=== PATIENT | male | born 1945 | race Caucasian/White ===

== ENCOUNTER 2019-02-11 04:57 | Inpatient (IN) ==
[2019-02-11] MEDS ORDERED: NS 1,000 ML IV ONE ×4 (05:21→10:58)
--- NOTE | 2019-02-11 05:41 | PROVIDER DOCUMENTATION ---
HPI-General Adult - General Chief Complaint: Abdominal Pain Stated Complaint: LOW ABD. PAIN Time Seen by Provider: 02/11/19 05:10 Source: patient, family Allergies/Adverse Reactions: Patient Allergies Allergy/AdvReac Type Severity Reaction Status Date / Time No Known Allergies Allergy Verified 02/11/19 05:57 Home Medications: Home Medication List Medication Instructions Recorded Confirmed Last Taken Type Amiodarone HCl 0.5 tab PO DAILY 02/11/19 02/11/19 02/10/19 History Carvedilol [Coreg] 1 tab PO BID 02/11/19 02/11/19 02/10/19 History LISINOpril [Prinivil] 20 mg PO DAILY 02/11/19 02/11/19 02/10/19 History Levothyroxine [Synthroid] 12.5 mcg PO DAILY 02/11/19 02/11/19 02/10/19 History Nitroglycerin Sl [Nitroglycerin] 0.4 mg SUBLINGUAL PRN PRN MDD 0.12 02/11/19 02/11/19 02/10/19 History Rivaroxaban [Xarelto] 1 tab PO DAILY 02/11/19 02/11/19 02/10/19 History Spironolactone 0.5 tab PO DAILY 02/11/19 02/11/19 02/10/19 History - History of Present Illness -Gen Adult Nature of Presenting Problems: 73 y/o M presents to the ED complaining of LLQ pain. States he began to have LLQ pain last night and it has persisted and worsened since. No fever, no nausea or vomiting, no diarrhea and reports he feels constipated. Tried to take a mag citrate without improvement. No dysuria, or hematuria. States he began to get sweaty this AM and on arrival to the ED was diaphoretic and found to be hypotensive. No chest pain no upper respiratory symptoms. Review of Systems - Adult - REVIEW OF SYSTEMS - ADULT Constitutional: reports: no symptoms reported Eyes: reports: no symptoms reported Ears, Nose, Mouth & Throat: reports: no symptoms reported Cardiovascular: reports: no symptoms reported Respiratory: reports: no symptoms reported Gastrointestinal: reports: abdominal pain. denies: diarrhea, nausea, vomiting Genitourinary: reports: no symptoms reported Musculoskeletal: reports: no symptoms reported Integumentary: reports: no symptoms reported Neurological: reports: no symptoms reported Psychiatric: reports: no symptoms reported Endocrine: reports: no symptoms reported Hematologic/Lymphatic: reports: no symptoms reported Allergic/Immunologic: reports: no symptoms reported All Other Systems: Reviewed and Negative Past History - Adult - PAST MEDICAL HISTORY-ADULT Review of Records: reports: Old Records Reviewed, Nursing Assessment Review, Medications Reviewed, Social history reviewed & non-contributory. Major Childhood Illnesses: reports: denies history Cardiovascular: reports: denies history Respiratory: reports: denies history Gastrointestinal: reports: denies history Obstetrical/Gynecological: reports: denies history Genitourinary: reports: denies history Musculoskeletal: reports: denies history Neurological: reports: denies history Endocrine/Immune: reports: denies history Other Conditions: reports: denies history - FAMILY HISTORY Family History: reviewed, not pertinent Physical Exam-General - PHYSICAL EXAM-ADULT Initial Vital Signs Reviewed: Yes - CONSTITUTIONAL General Appearance: alert, moderate distress, other (diaphoretic) - EYES Eyes: PERRL/EOMI - HEAD, EARS, NOSE, MOUTH & THROAT HENMT: normocephalic/atraumatic, moist mucous membranes, normal ENT inspection - NECK Neck: non-tender, full range of motion, supple - RESPIRATORY Respiratory: chest non-tender, lungs clear, normal breath sounds - CARDIOVASCULAR Cardiovascular: normal peripheral pulses, regular rate, rhythm, no edema, no JVD - GASTROINTESTINAL (ABDOMEN) Abdominal Exam: soft, tenderness (moderate LLQ) - MUSCULOSKELETAL Back Exam: normal inspection, no CVA tenderness, no vertebral tenderness Extremity: normal range of motion, non-tender - SKIN Integumentary: diaphoresis, pallor - NEUROLOGIC Neurologic: grossly normal, no motor/sensory deficits - PSYCHIATRIC Psych/Mental Status: normal mood/affect, normal thought content, normal thought process, oriented x 3 Progress - PLAN OF CARE/RESULTS Progress/Plan/Lab Results: Vital Signs - 8 hr 02/11/19 05:01 02/11/19 05:21 Temperature 97.4 F L Pulse Rate 91 H Respiratory Rate 16 Blood Pressure 80/65 O2 Sat by Pulse Oximetry 100 Orders Category Date Time Status IV Insertion ORDERED Care 02/11/19 05:[address] ABD/PELVIS W/IV CONT ONLY [CT] Stat Exams 02/11/19 05:20 Ordered CBC WITH DIFF [HEME] Stat Lab 02/11/19 05:27 Ordered COMPREHENSIVE METABOLIC PANEL [CHEM] Stat Lab 02/11/19 05:27 Ordered LIPASE [CHEM] Stat Lab 02/11/19 05:27 Ordered URINALYSIS W/POSS RFLX CULT [URINALYSIS] Stat Lab 02/11/19 05:20 Uncollected 0.9% Sodium Chloride Inj [Ns] 1,000 ml Med 02/11/19 05:21 Active IV 999 mls/hr EKG [EKG] Stat Ther 02/11/19 05:13 Ordered abdominal pain with hypotension and diaphoresis. Immediately resusitated with IVF and will further evaluate for causes including but not limited to sepsis, diverticulitis, colitis, AAA, uti, pyelo, ureteral stone Result Diagrams: 02/11/19 05:22 02/11/19 07:03 - EKG 1 Time of EKG reading by physician:: 05:17 EKG Read and Signed by:: Melodie Boland EKG Interpretation (*Must complete 3 of following elements*): Abnormal (Atrial fibrillation, rate 86, no acute st changes) - CONSULTS/PCP/HOSPITALIST Notification #1 *Consult/PCP/Hospitalist*: Dr. Higginbotham (bi application developer for Dr RAUL Mckinney) Time Discussed: 10:58 Consult Disposition: Admit - CHANGE OF SHIFT REPORT (ED Provider) 1 Report Given and Care Transferred to:: Dr. Villanueva Time of Transfer: 07:00 Items Pending: Labs, CT/MRI Results 2 Report Given and Care Transferred to:: assumed care of this patient at shift change. Labs and CT pending. Time of Transfer: 07:00 Items Pending: Labs, CT/MRI Results, Physician Consult/Arrival Departure - Departure Date of Disposition Decision: 02/11/19 Time of Disposition Decision: 10:12 DIAGNOSIS: Diverticulitis Disposition: ADMITTED INPATIENT 09 Certified Medical Emergency: Emergent Condition: Stable Referrals and Follow-Ups: Isabella Mckinney MD [Primary Care Provider] - - Critical Care Note This patient required my direct & personal management of CC.: No Attestation - Physician/ JORDI Attestation Patient care was provided by Advanced Practice Provider:: No The physician spent face to face time with patient:: Yes Advanced Practice Provider documentation review:: Supervising physician onsite and consulted in the evaluation and care of this patient. The physician did have a face to face encounter with the patient.
[2019-02-11 06:05] LABS: BASO# 0.02 X1000 (0.0-0.2); BASO% 0.2 % (0.0-0.8); EOS# 0.05 X1000 (0.0-0.7); EOS% 0.4 % (0.0-10.0); HEMATOCRIT 49.3 % (42.0-52.0); HEMOGLOBIN 15.7 g/dL (14.0-18.0); IMM GRAN# 0.02 X1000 (0.0-0.04); IMM GRAN% 0.2 % (0.0-0.5); LYMPH# 2.86 X1000 (1.2-3.4); LYMPH% 24.5 % (20.5-51.1); MCH 28.4 PG (27-31); MCHC 31.8 g/dL (33-37); MCV 89.2 FL (81-99); MONO# 1.27 X1000 (0.11-0.59); MONO% 10.9 % (1.7-9.3); MPV 11.9 FL (7.4-10.4); NEUT# 7.43 X1000 (1.4-6.5); NEUT% 63.8 % (42.2-75.2); PLT 168 X1000 (130-400); RBC 5.53 XMIL (4.7-6.1); RDW 13.8 % (11.5-14.5); WBC 11.65 X1000 (4.8-10.8)
[2019-02-11 07:30] LABS: ALB/GLOB RATIO 1.3; ALBUMIN 3.4 g/dL (3.5-5.0); CALCIUM 8.2 mg/dL (8.8-10.2); CREATININE 1.5 mg/dL (0.7-1.2); POTASSIUM 4.7 mmol/L (3.5-5.1); TOTAL BILIRUBIN 0.62 mg/dL (0.20-1.00); TOTAL PROTEIN 6.1 g/dL (6.3-8.3)
--- NOTE | 2019-02-11 08:15 | Diag Imaging Result Doc PS360 ---
EXAM: CHEST-1 VIEW 02/11/2019 HISTORY: hypotension TECHNIQUE: AP upright at 0749 COMMENT: There is minimal ill-defined opacity present in the medial left lung base which was not present on 03/17/2016. The possibility of atelectasis or pneumonia cannot be entirely excluded. Otherwise the appearance the chest has not changed significantly. IMPRESSION: Questionable right lower lobe atelectasis versus pneumonia. Electronically signed by Siva Garza 02/11/2019 8:12 AM
[2019-02-11 08:19] LABS: INR 2.46; PROTIME 27.3 Seconds (11.0-16.0)
[2019-02-11 08:20] LABS: PTT 45.3 Seconds (22.3-41.8)
[2019-02-11 08:49] LABS: URINE SOURCE CLEAN CATCH
[2019-02-11 08:52] LABS: BILIRUBIN URINE NEGATIVE (NEGATIVE); BLOOD URINE NEGATIVE (NEGATIVE); COLOR YELLOW; GLUCOSE URINE NEGATIVE (NEGATIVE); KETONE URINE TRACE mg/dL (NEGATIVE); LEUKOCYTES URINE NEGATIVE (NEGATIVE); NITRITE URINE NEGATIVE (NEGATIVE); PH URINE 5.5; PROTEIN URINE TRACE mg/dL (NEGATIVE); SP GRAVITY URINE 1.019; TURBIDITY URINE CLEAR (CLEAR); UROBILINOGEN URINE NORMAL (NORMAL)
[2019-02-11 08:54] LABS: UR EPITHELIAL CELLS <10 /HPF (<10); URINE BACTERIA NEGATIVE /HPF; URINE RBC <10 /HPF (<10); URINE WBC <10 /HPF (<10)
--- NOTE | 2019-02-11 09:25 | Diag Imaging Result Doc PS360 ---
EXAM: CT ABD/PELVIS W/IV CONT ONLY 02/11/2019 HISTORY: LLQ pain TECHNIQUE: This exam was performed using automated exposure control, adjustment of mA or kV according to patient size, and/or use of iterative reconstruction technique. COMMENT: There are increased interstitial markings in the posterior lung bases which may be due in part to fibrosis. There does appear to be some traction bronchiectasis particularly in the right posterior costophrenic sulcus. The abdominal aorta is not distended and the mesenteric and renal arteries are apparently patent. The liver, spleen, and adrenal glands are within normal limits. The pancreas is unremarkable. There is some apparent cortical scarring in the posterior lower pole of the right kidney. There is no evidence of hydronephrosis or stones. There is marked cortical atrophy in the lower mid anterior left kidney. The cortical scars may be result of previous pyelonephritis. There is no evidence of significant adenopathy. The small bowel is not distended. There is fluid throughout much of the colon. There is diverticulosis in the left colon. Pelvis: There is apparent diverticulitis in the distal descending colon particularly around image 113. There is no appreciable abscess formation although there is some extra luminal gas. There is also diverticulosis in the sigmoid colon without evidence of inflammation. There is no evidence of free fluid. The urinary bladder is not distended. There are bilateral fat-containing inguinal hernias. The appendix is normal in appearance. There are spondylotic changes in the lumbar spine. There is ankylosis of the sacroiliac joints. There is a bone island in the right femur. IMPRESSION: Diverticulitis in the distal descending colon. Mild pulmonary fibrosis. Electronically signed by Siva Garza 02/11/2019 9:23 AM
[2019-02-11] MEDS ORDERED: LEVAQUIN 750 MG/D5W 750 MG/150 ML IVPB IV ONE (09:37)
[2019-02-11] MEDS ORDERED: MORPHINE IV ONE (10:12)
[2019-02-11] MEDS ORDERED: ZOFRAN IV ONE (10:12)
[2019-02-11] MEDS ORDERED: ZOFRAN IV PRN (10:58)
[2019-02-11] MEDS: FLAGYL 500 MG/NS 500 MG/100 ML IVPB IV SCH ×2 (12:04→19:53)
[2019-02-11] MEDS: MORPHINE IV PRN ×3 (12:10→19:52)
--- NOTE | 2019-02-11 14:15 | HISTORY AND PHYSICAL ---
CHIEF COMPLAINT: Abdominal pain. 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 It has gotten steadily worse. He has never had a colonoscopy. He tried taking some magnesium citrate, without improvement. He did get nauseated and diaphoretic with this, and came to the emergency room. PAST MEDICAL HISTORY: Past history includes atrial fibrillation, hypertension. He has had surgery on his left knee for a cartilage tear. He has had a right inguinal hernia done by Dr. Song here in [facility] about 2 years ago. MEDICATIONS: Please see medication list for current medications. FAMILY HISTORY: He has one son who is generally in good health. REVIEW OF SYSTEMS: Neurologic: Denies headaches, seizures, visual problems, hearing problems. Pulmonary: He has had a little shortness of breath on exertion for the last week or so. He says he is not short of breath right now. Cardiovascular: Denies chest pains or heart palpitations. Does take medication for irregular heart beat. GI: He has had left lower quadrant abdominal pain. He felt like he had been a little constipated. : No difficulty with urination. Endocrine: He does have hypothyroidism and takes Synthroid. Musculoskeletal: No acute problems. PHYSICAL EXAMINATION: VITAL SIGNS: Blood pressure was low at 80/65 initially, pulse 91, temperature 97.4 degrees Fahrenheit. HEENT: He is normocephalic. EOMs intact. PERRLA. Throat clear. LUNGS: Clear to auscultation and percussion without rhonchi, rales, or wheezes. HEART: Sounded regular but he had been told he is in atrial fibrillation. Maybe this is controlled with his medications. ABDOMEN: He is very tender in the left lower quadrant. No organomegaly noted. EXTERNAL GENITALIA AND RECTAL: Examination is deferred. NEUROLOGICAL EXAMINATION: Cranial nerves 2-12 are intact grossly. Sensory and motor intact. Reflexes 1+ all. He is oriented x3. DIAGNOSTIC DATA: CT scan of the abdomen showed diverticulitis at the distal descending colon. Has mild pulmonary fibrosis. CT scan showed interstitial markings in the posterior lung bases which may be due in part to fibrosis. Apparently, chest x-ray shows possible infiltrate versus atelectasis in the left mid lung field that was not there on previous x-ray. Whether this is part of the pulmonary fibrosis or more of an acute process is unknown but he has been short of breath for the last week or so. LABORATORY DATA: White count was 11,650, hemoglobin 15.7, hematocrit 49.3. INR was 2.46, PT 27.3, PTT 45.3. He is not on Coumadin. He is on Xarelto. Sodium is 141. Liver enzymes appear normal. Creatinine is 1.5 with a GFR of 46, BUN 26. Total protein is a little low at 6.1, total albumin a little low at 3.4. Urinalysis is normal. ASSESSMENT: 1. Diverticulitis. 2. Possible left middle lung field pneumonia. 3. Chronic atrial fibrillation. 4. Questionable coagulopathy. We will repeat INR and prothrombin time. 5. The patient also has secondary diagnoses of hypertension, chronic atrial fibrillation, and hypothyroidism. PLAN: We will treat with IV antibiotics. We will get another chest x-ray. Repeat coagulation studies. cc: Johnathon Higginbotham Jr, MD
[2019-02-11 14:20] LABS: INR 1.87; PROTIME 21.9 Seconds (11.0-16.0)
--- NOTE | 2019-02-11 14:24 | HISTORY AND PHYSICAL ---
ADDENDUM TO HISTORY AND PHYSICAL: Please add to his diagnosis hypotension. The patient did come in with low blood pressure. He has been resuscitated to a certain extent but initially was. Even is last blood pressure was only 104/63, we will hold his blood pressure medications. Because his INR and ProTime were also elevated we will repeat this to make sure it is not a lab error. cc: Johnathon Higginbotham Jr, MD
--- NOTE | 2019-02-11 17:25 | EKG Report ---
Test Performed on : 02/11/2019 05:17:24 AM Test Reason : abdominal pain dizzy Blood Pressure : / mmHG Vent. Rate : 086 BPM Atrial Rate : 300 BPM P-R Int : 000 ms QRS Dur : 144 ms QT Int : 416 ms P-R-T Axes : 000 059 030 degrees QTc Int : 497 ms Atrial fibrillation. Right bundle branch block Abnormal ECG When compared with ECG of 17-MAR-2016 18:36, Atrial fibrillation. has replaced Sinus rhythm. Vent. rate has increased BY 31 BPM Unconfirmed Result
[2019-02-11] MEDS ORDERED: NS 500 ML IV ONE (21:45)
[2019-02-11] MEDS: NS 1,000 ML IV SCH (21:57)
[2019-02-11] MEDS ORDERED: NS 1,000 ML ONE (21:58)
[2019-02-11 22:08] LABS: HEMATOCRIT 45.1 % (42.0-52.0); HEMOGLOBIN 14.4 g/dL (14.0-18.0)
[2019-02-12] MEDS: MORPHINE IV PRN ×2 (03:31→19:43)
[2019-02-12] MEDS: FLAGYL 500 MG/NS 500 MG/100 ML IVPB IV SCH ×4 (03:32→19:35)
[2019-02-12 04:19] LABS: HEMATOCRIT 43.3 % (42.0-52.0); HEMOGLOBIN 13.6 g/dL (14.0-18.0)
[2019-02-12] MEDS: NS 1,000 ML IV SCH ×3 (04:30→20:47)
[2019-02-12 08:15] LABS: BASO# 0.01 X1000 (0.0-0.2); BASO% 0.1 % (0.0-0.8); EOS# 0.01 X1000 (0.0-0.7); EOS% 0.1 % (0.0-10.0); HEMATOCRIT 42.8 % (42.0-52.0); HEMOGLOBIN 13.3 g/dL (14.0-18.0); IMM GRAN# 0.03 X1000 (0.0-0.04); IMM GRAN% 0.2 % (0.0-0.5); LYMPH# 1.81 X1000 (1.2-3.4); LYMPH% 13.8 % (20.5-51.1); MCH 28.5 PG (27-31); MCHC 31.1 g/dL (33-37); MCV 91.6 FL (81-99); MONO% 7.6 % (1.7-9.3); MPV 11.9 FL (7.4-10.4); NEUT# 10.27 X1000 (1.4-6.5); NEUT% 78.2 % (42.2-75.2); PLT 125 X1000 (130-400); RBC 4.67 XMIL (4.7-6.1); RDW 13.9 % (11.5-14.5); WBC 13.13 X1000 (4.8-10.8)
[2019-02-12 08:30] LABS: AGAP 14; BUN 19 mg/dL (8-22); CALCIUM 7.7 mg/dL (8.8-10.2); CHLORIDE 108 mmol/L (98-107); COSMO 278; ESTIMATED GFR > 60; GLUCOSE 62 mg/dL (70-104); POTASSIUM 5.4 mmol/L (3.5-5.1); SODIUM 139 mmol/L (136-145); TCO2 17 mmol/L (25-35)
[2019-02-12] MEDS: LEVAQUIN 750 MG/D5W 750 MG/150 ML IVPB IV SCH (08:48)
[2019-02-12] MEDS: CORDARONE PO SCH (11:53)
[2019-02-12 16:05] LABS: HEMATOCRIT 44.2 % (42.0-52.0); HEMOGLOBIN 14.1 g/dL (14.0-18.0)
[2019-02-12] MEDS: COREG PO SCH (20:47)
--- NOTE | 2019-02-12 22:05 | PROGRESS NOTE ---
DATE: 02/12/2019 SUBJECTIVE: A 73-year-old white gentleman admitted to the hospital with sigmoid diverticulitis with microperforation, hypotension. Complains of left lower quadrant pain. Blood pressure is stable. He is in atrial fibrillation. REVIEW OF SYSTEMS: HEENT: No headache. No vision problem. No earache. No sore throat. Cardiopulmonary: No chest pain, shortness of breath, orthopnea, PND. Gastrointestinal: Left lower quadrant pain. No passing gas. No bleeding per rectum. Musculoskeletal: No swelling of legs. PAST MEDICAL HISTORY: Reviewed. PAST SURGICAL HISTORY: Reviewed. MEDICINES: Reviewed. ALLERGIES: Not known. OBJECTIVE: Vital signs: Temperature is 97 degrees, tachycardic, irregular. Blood pressure is slightly running high. HEENT Exam: Within normal limits. Neck: Supple. Chest: Clear. Cardiovascular: Irregular heart sounds. Respiratory: Bilateral air entry. Gastrointestinal: Belly is soft. Tender in the left lower quadrant area. No guarding. No rigidity. Extremities: No peripheral edema, cyanosis. Neurologic: No obvious neurological deficits. INVESTIGATIONS: CBC: White cell count 13, hematocrit 44, platelets 135,000. Sodium 139, potassium 5.4, chloride 108, BUN 19, creatinine 1.0. Microbiology: Blood cultures are pending. I did review the CT scan of the abdomen and pelvis and diverticulitis in the distal sigmoid colon. EKG: Atrial fibrillation. Chest x-ray: Pacemaker on the left side. Right lower lobe atelectasis. ASSESSMENT: 1. Left lower quadrant pain due to sigmoid diverticulitis. 2. Chronic atrial fibrillation, status post pacemaker. 3. Hypertension. 4. Hypothyroidism. PLAN OF CARE: As follows: 1. Continue Levaquin and Flagyl. 2. Surgical consult with Dr. Dalal. 3. Azotemia is improving. Decrease IV fluids. 4. Slowly restart on Cordarone and Coreg. 5. Morphine for p.r.n. pain. 6. He was on Xarelto for the PAF, and no signs of active bleeding, and I spoke with Dr. Hendricks and repeat the labs in the morning and discussed the plan of care with family. LEVEL OF DOCUMENTATION: 35 minutes. cc: MD Johnathon Deleon Jr, MD
[2019-02-13] MEDS: FLAGYL 500 MG/NS 500 MG/100 ML IVPB IV SCH ×4 (01:02→20:02)
[2019-02-13 05:33] LABS: BASO# 0.01 X1000 (0.0-0.2); BASO% 0.1 % (0.0-0.8); EOS# 0.08 X1000 (0.0-0.7); HEMATOCRIT 44.7 % (42.0-52.0); IMM GRAN# 0.02 X1000 (0.0-0.04); IMM GRAN% 0.3 % (0.0-0.5); LYMPH# 1.16 X1000 (1.2-3.4); LYMPH% 15.2 % (20.5-51.1); MCH 28.4 PG (27-31); MCHC 31.3 g/dL (33-37); MCV 90.7 FL (81-99); MONO# 0.76 X1000 (0.11-0.59); NEUT# 5.59 X1000 (1.4-6.5); NEUT% 73.4 % (42.2-75.2); PLT 121 X1000 (130-400); RBC 4.93 XMIL (4.7-6.1); RDW 13.5 % (11.5-14.5); WBC 7.62 X1000 (4.8-10.8)
[2019-02-13 06:13] LABS: AGAP 12; BUN 17 mg/dL (8-22); CALCIUM 8.8 mg/dL (8.8-10.2); CHLORIDE 103 mmol/L (98-107); COSMO 274; CREATININE 0.8 mg/dL (0.7-1.2); ESTIMATED GFR > 60; GLUCOSE 77 mg/dL (70-104); POTASSIUM 4.2 mmol/L (3.5-5.1); SODIUM 137 mmol/L (136-145); TCO2 22 mmol/L (25-35)
[2019-02-13] MEDS: COREG PO SCH ×2 (08:30→20:02)
[2019-02-13] MEDS: CORDARONE PO SCH (08:30)
[2019-02-13] MEDS: LEVAQUIN 750 MG/D5W 750 MG/150 ML IVPB IV SCH (08:30)
[2019-02-13] MEDS: CARDIZEM 100 MG/NS 100 MG/100 ML IVPB IV SCH ×2 (08:31→16:46)
[2019-02-13] MEDS: MORPHINE IV PRN (08:34)
[2019-02-13] MEDS: NS 1,000 ML IV SCH (09:21)
--- NOTE | 2019-02-13 09:54 | GENERAL SURGERY CONSULTATION ---
DATE: 02/13/2019 REQUESTING PHYSICIAN: Dr. Mckinney. CONSULT REQUEST: Diverticulitis. HISTORY OF PRESENT ILLNESS: A 73-year-old gentleman with a past medical history of atrial fib, hypertension, initially presenting with abdominal pain. He was seen in the emergency department and was noted to have diverticulitis. There is also some concern potentially of a pneumonia. He has been admitted to the ICU secondary to his abnormal heart rhythm and relative hypotension. He seems to be doing okay at this point, feeling a little bit better, but still having pain in the left lower quadrant. He has never had this kind of pain before. He has also never had a colonoscopy. I was asked to weigh an opinion. The CT scan did show potential for microperforation. PAST MEDICAL HISTORY: Includes atrial fib, hypertension. PAST SURGICAL HISTORY: Includes inguinal hernia repair and left knee surgery. HOME MEDICATIONS: Reviewed. Of note he is on Xarelto. ALLERGIES: None. FAMILY HISTORY: Reviewed with patient but noncontributory. REVIEW OF SYSTEMS: A full 14 systems reviewed and negative except as specified in HPI. PHYSICAL EXAMINATION: Vital Signs: Patient is currently afebrile. His heart rate is in the 130s, but it is irregular consistent with atrial fibrillation. Blood pressure 111/86. General exam: No acute distress, male looks stated age. HEENT: Normocephalic, atraumatic. Pupils equal, round, react to light. Mucous membranes moist. Oropharynx benign. Neck: Supple. Trachea midline. Cardiovascular: Irregularly irregular. Lungs: Grossly clear. Abdomen: Soft. Tender to palpation suprapubic and left lower quadrant but no peritoneal signs at this time. Extremities: Moves all extremities. Neurologic: Grossly intact. Skin: No signs of jaundice. Vascular: All extremities perfused. LABORATORY: White blood cell count 7, which is down from 13, hematocrit 44, platelet count 121,000. INR when he came in was 1.87. Remainder of labs reviewed. CT scan independently reviewed and radiology report reviewed and noted above. ASSESSMENT AND PLAN: A 73-year-old with diverticulitis. 1. Diverticulitis. At this time I do not think we need emergent operation. Agree with the IV antibiotics which he is on. He is currently on Levaquin and Flagyl. I am okay with him starting a clear liquid diet, that way he can get some of his heart medicines if he needs it. We will plan on repeat CT scan in the next couple days but otherwise we will continue to monitor while in the hospital. I appreciate the consultation. The patient would likely benefit from a colonoscopy. 2. History of colonoscopy. At this time, patient has never had one so we will likely need to do one once he gets over this diverticulitis. cc: MD Johnathon Grimes Jr, MD
--- NOTE | 2019-02-13 20:50 | PROGRESS NOTE ---
DATE: 02/13/2019 SUBJECTIVE: The patient is very anxious, tachycardic, worried about the medicine. I appreciated Dr. Dalal's consult. Still has left lower quadrant pain. No bleeding and started on clear liquids. History of passing flatus. REVIEW OF SYSTEMS: Otherwise stable. PHYSICAL EXAMINATION: Temperature is 98 degrees, pulse is 79, blood pressure 120/68.HEENT Exam: Within normal limits. Neck: Supple. No lymphadenopathy. Chest: Bilateral air entry. Heart: Regular heart sounds. Abdomen: Belly is soft. Tender in the left lower quadrant. No signs of peritonitis. LABS: White cell count 7.6, hematocrit 44, platelets 121,000. Sodium 137, potassium 4.2, BUN 17, creatinine 0.8. ASSESSMENT AND PLAN: 1. Sigmoid diverticulitis, getting better on Levaquin and Flagyl. I appreciate Dr. Dalal's consult. 2. Azotemia, better. 3. Decreased IV fluids. 4. Clear liquids. 5. Atrial fibrillation, on Cordarone and Coreg. We will use the Cardizem as needed. 6. Temazepam for sleeping and slowly start his home medications. He is very about Xarelto. If he continues to improve, we will slowly transfer him out of the intensive care unit. I appreciated Dr. Dalal's consult. LEVEL OF DOCUMENTATION: 25 minutes. cc: MD Johnathon Deleon Jr, MD
[2019-02-13] MEDS: RESTORIL PO PRN (21:09)
[2019-02-14] MEDS: NS 1,000 ML IV SCH ×3 (01:35→09:22)
[2019-02-14] MEDS: FLAGYL 500 MG/NS 500 MG/100 ML IVPB IV SCH ×4 (02:17→19:45)
[2019-02-14] MEDS: CARDIZEM 100 MG/NS 100 MG/100 ML IVPB IV SCH (06:17)
[2019-02-14 06:46] LABS: EOS# 0.08 X1000 (0.0-0.7); EOS% 1.1 % (0.0-10.0); HEMOGLOBIN 14.9 g/dL (14.0-18.0); IMM GRAN# 0.02 X1000 (0.0-0.04); IMM GRAN% 0.3 % (0.0-0.5); LYMPH% 14.9 % (20.5-51.1); MCH 28.2 PG (27-31); MCHC 31.7 g/dL (33-37); MONO# 0.68 X1000 (0.11-0.59); MONO% 9.2 % (1.7-9.3); MPV 11.3 FL (7.4-10.4); NEUT# 5.52 X1000 (1.4-6.5); NEUT% 74.5 % (42.2-75.2); PLT 130 X1000 (130-400); RBC 5.28 XMIL (4.7-6.1); RDW 13.3 % (11.5-14.5)
[2019-02-14 06:47] LABS: AGAP 13; BUN 11 mg/dL (8-22); CALCIUM 8.5 mg/dL (8.8-10.2); CHLORIDE 104 mmol/L (98-107); COSMO 278; CREATININE 0.8 mg/dL (0.7-1.2); ESTIMATED GFR > 60; GLUCOSE 110 mg/dL (70-104); POTASSIUM 4.4 mmol/L (3.5-5.1); SODIUM 139 mmol/L (136-145); TCO2 22 mmol/L (25-35)
[2019-02-14] MEDS: COREG PO SCH ×2 (08:29→21:29)
[2019-02-14] MEDS: CORDARONE PO SCH (08:29)
[2019-02-14] MEDS: SYNTHROID PO SCH (08:29)
[2019-02-14] MEDS: LEVAQUIN 750 MG/D5W 750 MG/150 ML IVPB IV SCH (08:30)
[2019-02-14] MEDS: XARELTO PO SCH (17:21)
[2019-02-14] MEDS: RESTORIL PO PRN (21:28)
--- NOTE | 2019-02-14 23:46 | GENERAL SURGERY PROGRESS NOTE ---
DATE: 02/14/2019 SUBJECTIVE: The patient reports improving pain. No nausea. He has passed gas and is tolerating liquids. OBJECTIVE: Vital Signs: He is afebrile. Vital signs are stable. General: He is awake, alert and oriented x3. No acute distress. GI: Soft, nondistended, minimally tender on the left side. No rebound or guarding. LABORATORY DATA: CBC was reviewed and unremarkable. BMP also reviewed and unremarkable. ASSESSMENT AND PLAN: A 73-year-old male with contained perforation and diverticulitis. We will continue his antibiotics and advance until full liquid diet. cc: MD Johnathon Campbell Jr, MD
[2019-02-15] MEDS: NS 1,000 ML IV SCH ×2 (02:07→03:49)
[2019-02-15] MEDS: FLAGYL 500 MG/NS 500 MG/100 ML IVPB IV SCH ×4 (03:06→21:04)
[2019-02-15] MEDS: CARDIZEM 100 MG/NS 100 MG/100 ML IVPB IV SCH (06:16)
--- NOTE | 2019-02-15 06:32 | GENERAL SURGERY PROGRESS NOTE ---
DATE: 02/15/2019 SUBJECTIVE: Patient seems to be doing okay. He says his pain is considerably less. OBJECTIVE: Vital Signs: Patient is currently afebrile. He does have still somewhat of an irregular heartbeat. Blood pressure is stable. General: On exam, in no acute distress. HEENT: Normocephalic, atraumatic. Pupils equal, round, reactive to light. Mucous membranes moist. Oropharynx benign. Neck: Supple. Lungs: Grossly clear. Cardiovascular: Irregularly irregular. Abdomen: Soft. Really no tenderness at all this morning. No peritoneal signs. Extremities: Moves all extremities. Neurologic: Grossly intact. Skin: No signs of jaundice. Vascular: All extremities perfused. LABORATORY DATA: Reviewed from yesterday, his white blood cell count is normal, hematocrit normal, platelet count normal. Majority of electrolytes are normal. ASSESSMENT AND PLAN: A 73-year-old gentleman with diverticulitis. Diverticulitis: At this time, he has made clinical improvement. He essentially has no pain. I think at this point, we could probably transition him over to oral antibiotics. I have advanced him over to a gastrointestinal soft diet. Since he has made such improvement clinically and does not have a leukocytosis, I do not think at this time we need to do a repeat CT scan. Once his cardiac issues get improved, we may consider transferring him out of the intensive care unit and hopefully discharging soon. cc: MD Johnathon Grimes Jr, MD
[2019-02-15] MEDS: SYNTHROID PO SCH (08:15)
[2019-02-15] MEDS: COREG PO SCH ×2 (08:15→21:04)
[2019-02-15] MEDS: CORDARONE PO SCH (08:15)
--- NOTE | 2019-02-15 08:50 | PROGRESS NOTE ---
DATE: 02/15/2019 SUBJECTIVE: The patient is doing much better and atrial fibrillation rate is well controlled. I appreciated Dr. Dalal's consult. Abdominal pain is improving. PHYSICAL EXAMINATION: Vital signs: Temperature is 98 degrees. He is in atrial fibrillation. Hemodynamics are stable. HEENT: Within normal limits. Chest: Clear. Heart: Irregular heart sounds. Abdomen: Belly is soft. Decreased tenderness in the left lower quadrant. Neurologic: No neurological deficits. INVESTIGATIONS: None reported. ASSESSMENT AND PLAN: 1. Sigmoid diverticulitis is improving. Continue IV Levaquin and Flagyl. 2. Atrial fibrillation. We will start home medicines with amiodarone, Coreg and Xarelto. 3. Insomnia. Temazepam. 4. Reconcile home medicines, transfer to the regular floor. Advance the diet to GI soft. Please see the transfer orders. LEVEL OF DOCUMENTATION: 35 minutes. cc: MD Johnathon Deleon Jr, MD
[2019-02-15] MEDS: LEVAQUIN 750 MG/D5W 750 MG/150 ML IVPB IV SCH (10:02)
[2019-02-15] MEDS ORDERED: NITROGLYCERIN SL PRN (10:55)
[2019-02-15] MEDS ORDERED: XARELTO PO SCH (10:55)
[2019-02-15] MEDS: PRINIVIL PO SCH (11:18)
[2019-02-15] MEDS: XARELTO PO SCH (19:13)
[2019-02-16] MEDS: FLAGYL 500 MG/NS 500 MG/100 ML IVPB IV SCH ×4 (01:20→20:12)
--- NOTE | 2019-02-16 06:41 | GENERAL SURGERY PROGRESS NOTE ---
DATE: 02/16/2019 SUBJECTIVE: Patient seems to be doing okay. He was transferred out of the unit. OBJECTIVE: Vital Signs: Patient is currently afebrile. His vital signs are stable. General: No acute distress. HEENT: Normocephalic, atraumatic. Pupils equal, round and reactive to light. Mucous membranes moist. Oropharynx benign. Neck: Supple. Trachea midline. Cardiovascular: Irregular irregular. Lungs: Grossly clear. Abdomen: Soft with some minimal tenderness in the left lower quadrant. No peritoneal signs. Extremities: Moves all extremities. Neurologic: Grossly intact. Skin: No signs of jaundice. Vascular: All extremities perfused. LABORATORY: None this morning as of yet. ASSESSMENT AND PLAN: A 73-year-old gentleman with diverticulitis. 1. Diverticulitis. At this time, he seems to be making some clinical improvement, but he still significantly is deconditioned. We will continue current treatment and continue antibiotics. I think he can be transitioned over to p.o. antibiotics here soon. Hopefully, we can have him discharged here in the near future. 2. Deconditioning. At this time, would recommend continue working and mobilization with the patient. He is probably still too weak to be discharged. cc: MD Johnathon Grimes Jr, MD
[2019-02-16] MEDS: SYNTHROID PO SCH (09:35)
[2019-02-16] MEDS: PRINIVIL PO SCH (09:35)
[2019-02-16] MEDS: CORDARONE PO SCH (09:35)
[2019-02-16] MEDS: COREG PO SCH ×2 (09:35→20:12)
[2019-02-16] MEDS: LEVAQUIN 750 MG/D5W 750 MG/150 ML IVPB IV SCH (10:52)
[2019-02-16] MEDS: XARELTO PO SCH (17:09)
--- NOTE | 2019-02-16 19:11 | PROGRESS NOTE ---
DATE: 02/16/2019 SUBJECTIVE: The patient is doing better. Still with pain. No bleeding per rectum. He is still in atrial fibrillation on the monitor. He is supposed to have direct cardioversion this week in [facility]. Previously seen by Dr. Acuna. REVIEW OF SYSTEMS: None reported. PHYSICAL EXAMINATION: Temperature is 97 degrees. Pulse is 105. Vitals are stable.HEENT: Within normal limits. Neck: Supple. Irregular heartbeat. Bilateral air entry. Belly is soft, slightly tender in the left lower quadrant area. LABORATORY DATA: Labs were not done. Blood cultures were negative. ASSESSMENT AND PLAN: 1. Sigmoid diverticulitis. Under the care of Dr. Dalal. Continue on Levaquin and Flagyl. 2. Left hand localized ecthyma with redness from the intravenous site. Continue on Levaquin. 3. Persistent atrial fibrillation. On Cordarone, Coreg, Xarelto. 4. Insomnia. On Restoril. 5. Slowly advance to soft diet over the weekend. Hopefully, will discharge on Tuesday and will follow up. LEVEL OF DOCUMENTATION: 25 minutes. cc: MD Johnathon Deleon Jr, MD
[2019-02-17] MEDS: FLAGYL 500 MG/NS 500 MG/100 ML IVPB IV SCH ×4 (01:46→22:10)
[2019-02-17] MEDS: PRINIVIL PO SCH (08:45)
[2019-02-17] MEDS: SYNTHROID PO SCH (08:45)
[2019-02-17] MEDS: CORDARONE PO SCH (08:45)
[2019-02-17] MEDS: LEVAQUIN 750 MG/D5W 750 MG/150 ML IVPB IV SCH (08:45)
[2019-02-17] MEDS: COREG PO SCH ×2 (08:45→22:11)
--- NOTE | 2019-02-17 10:25 | GENERAL SURGERY PROGRESS NOTE ---
DATE: 02/17/2019 SUBJECTIVE: Patient doing well. No major issues. OBJECTIVE: Vital Signs: Patient is currently afebrile. His vital signs are stable. General: No acute distress. HEENT: Normocephalic, atraumatic. Pupils equal, round, reactive to light. Mucous membranes moist. Oropharynx benign. Neck: Supple. Trachea midline. Cardiovascular: Irregularly irregular. Lungs: Grossly clear. Abdomen: Soft. Minimal discomfort to palpation but no peritoneal signs. Extremities: Moves all extremities. Neurologic: Grossly intact. Skin: No signs of jaundice. Vascular: All extremities perfused. LABORATORY DATA: None this morning as of yet. ASSESSMENT AND PLAN: A 73-year-old gentleman with diverticulitis. Diverticulitis. At this time, he seems to be clinically improving. We will keep him on his antibiotics. I do not think we are going to need to do any surgery, but we will monitor him while he is in the hospital. cc: MD Johnathon Grimes Jr, MD
--- NOTE | 2019-02-17 12:18 | PROGRESS NOTE ---
DATE: 02/17/2019 Mr. Menezes has sigmoid diverticulitis, atrial fibrillation on Xarelto and amiodarone. So far the culture studies have been negative. OBJECTIVE: Vital Signs: His vital signs are stable. Abdomen: Is soft, nontender. He is getting IV Levaquin which we are going to continue. -8 cc: MD Johnathon Dean Jr, MD
[2019-02-17] MEDS: XARELTO PO SCH (17:57)
[2019-02-18] MEDS: FLAGYL 500 MG/NS 500 MG/100 ML IVPB IV SCH ×4 (01:10→20:07)
--- NOTE | 2019-02-18 07:29 | GENERAL SURGERY PROGRESS NOTE ---
DATE: 02/18/2019 SUBJECTIVE: The patient seems to be doing okay. OBJECTIVE: Vital Signs: The patient is currently afebrile. His vital signs are stable. General: No acute distress. HEENT: Normocephalic, atraumatic. Pupils equal, round, reactive to light. Mucous membranes moist. Oropharynx benign. Neck: Supple. Trachea midline. Cardiovascular: Regular rate and rhythm. Lungs: Grossly clear. Abdomen: Soft. Only minimal tenderness. No peritoneal signs. Extremities: Moves all extremities. Neurologic: Grossly intact. Skin: No signs of jaundice. Vascular: All extremities perfused. LABORATORY DATA: None this morning as of yet. ASSESSMENT AND PLAN: A 73-year-old gentleman with diverticulitis. Diverticulitis. At this time, the patient is improving clinically. Will keep him on his antibiotics. No need for surgery at this point. Will continue to monitor while he is in the hospital. cc: MD Johnathon Grimes Jr, MD
[2019-02-18] MEDS: PRINIVIL PO SCH (09:10)
[2019-02-18] MEDS: LEVAQUIN 750 MG/D5W 750 MG/150 ML IVPB IV SCH (09:10)
[2019-02-18] MEDS: SYNTHROID PO SCH (09:10)
[2019-02-18] MEDS: COREG PO SCH ×2 (09:10→20:07)
[2019-02-18] MEDS: CORDARONE PO SCH (09:10)
--- NOTE | 2019-02-18 11:39 | PROGRESS NOTE ---
DATE: 02/18/2019 LOCATION: Room 326A. SUBJECTIVE: Mr. Menezes is recovering from diverticulitis. He is getting IV Levaquin. He is also on Xarelto for atrial fibrillation. Abdomen is soft, somewhat tender in the left lower quadrant. He was seen by Dr. Dalal today. -9 cc: MD Johnathon Dean Jr, MD
[2019-02-18] MEDS ORDERED: TYLENOL PO PRN (13:38)
[2019-02-18] MEDS: XARELTO PO SCH (18:15)
[2019-02-19] MEDS: FLAGYL 500 MG/NS 500 MG/100 ML IVPB IV SCH ×2 (02:09→09:02)
--- NOTE | 2019-02-19 07:19 | GENERAL SURGERY PROGRESS NOTE ---
DATE: 02/19/2019 SUBJECTIVE: The patient is doing well. No major issues.Objective: Vital Signs: Patient is currently afebrile. His vital signs stable. General: On exam, no acute distress. Cardiovascular: Atrial fibrillation. HEENT and Neck: Normocephalic, atraumatic. Pupils equal, round, reactive to light. Mucous membranes moist. Oropharynx benign. Neck is supple. Trachea midline. Lungs: Grossly clear. Abdomen: Soft, nontender, nondistended. Extremities: Moves all extremities. Neurologic: Grossly intact. Skin: No signs of jaundice. Vascular: All extremities perfused. LABORATORY: None this morning as of yet. ASSESSMENT AND PLAN: A 73-year-old gentleman with diverticulitis. Diverticulitis: At this time, the patient is clinically improving. I think we can transition him over to oral antibiotics and discharge him home today if okay with his primary care physician. cc: MD Johnathon Grimes Jr, MD
[2019-02-19] MEDS: COREG PO SCH (09:02)
[2019-02-19] MEDS: PRINIVIL PO SCH (09:02)
[2019-02-19] MEDS: SYNTHROID PO SCH (09:02)
[2019-02-19] MEDS: CORDARONE PO SCH (09:02)
[2019-02-19] MEDS ORDERED: PNEUMOVAX 23 IM ONE (09:49)
[2019-02-19] MEDS: LEVAQUIN 750 MG/D5W 750 MG/150 ML IVPB IV SCH (10:19)
[2019-02-19 11:40] VITALS: BP 114/77
--- NOTE | 2019-02-19 21:53 | DISCHARGE SUMMARY ---
ADMISSION DATE: 02/11/2019 DISCHARGE DATE: 02/19/2019 DISCHARGING DIAGNOSIS: Left lower quadrant pain due to sigmoid diverticulitis. SECONDARY DIAGNOSES: 1. Persistent atrial fibrillation. 2. Hypertension. 3. Hypothyroidism. CONSULTS: Colin Dalal MD BRIEF HISTORY: Please see the H and P that was done by Dr. Higginbotham. In brief, he is a 73-year-old white gentleman who came to the hospital with left lower quadrant pain, elevated white cell count and azotemia due to sigmoid diverticulitis. He is also rapid atrial fibrillation. HOSPITAL COURSE: 1. He was given IV fluids and subsequently renal function test came back normal. 2. Elevated white cell count due to sigmoid diverticulitis with microperforation, The patient was given Levaquin and Flagyl. Subsequently, white cell count came back normal. Surgical consult was obtained. Dr. Dalal slowly transitioning into p.o. antibiotics and outpatient colonoscopy. 3. Persistent atrial fibrillation. Needs IV Cardizem drip. Slowly transitioning to the p.o. medicine with Coreg and Xarelto. The patient is going to see Dr. Yoo in the [facility] in [place] for a direct cardioversion. He also had a pacemaker was placed and subsequently his clinical symptoms are improved. Tolerating the diet very well. Rest of the hospital course was uneventful. LABORATORY DATA FOLLOWS: CBC: White cell count 7.4, hematocrit 47, platelets 130,000. Sodium 139, potassium 4.4, chloride 104, BUN 11, creatinine 0.8, glucose 110, and calcium 8.5. Urinalysis is clear. Blood cultures were negative. DISCHARGE MEDICATIONS: At the time of discharge, the patient was given pneumococcal vaccine-23 02/19/2019. He would rather take influenza vaccine in [facility]. Amiodarone 200 daily, Coreg 25 p.o. b.i.d., Synthroid 25 mcg daily, nitroglycerin as needed, Aldactone 25 daily, tramadol 20 daily, Xarelto 20 daily, Levaquin 500 daily for 10 days. FOLLOWUP: Follow up in my office in 2 weeks. Follow up with Dr. Dalal for interval colonoscopy and further workup and follow up with Dr. Yoo in [facility] for direct cardioversion for persistent atrial fibrillation. cc: Lauro Mckinney, MD Colin Meléndez Jr, MD
== END 2019-02-19 12:39 | disposition home or self-care (01) | DRG 392 ==
LOC: ED 04:57 → ICU 12:28 → 3N 02-15 12:58
PROVIDERS: ADMIT Emergency Medicine; ATTEND Internal Medicine

== ENCOUNTER 2019-02-26 13:34 | Inpatient (IN) ==
[2019-02-26] MEDS ORDERED: ASPIRIN PO ONE (13:50)
[2019-02-26] MEDS ORDERED: NS 1,000 ML ONE (14:04)
[2019-02-26] MEDS ORDERED: CARDIZEM IV ONE ×2 (14:07→15:38)
[2019-02-26] MEDS ORDERED: NS 1,000 ML IV ONE (14:08)
--- NOTE | 2019-02-26 14:13 | PROVIDER DOCUMENTATION ---
HPI-Syncope/Dizziness - General Chief Complaint: Shortness of Breath Stated Complaint: Palpitations, sob Time Seen by Provider: 02/26/19 14:00 Source: patient, family (Spouse) Allergies/Adverse Reactions: Patient Allergies Allergy/AdvReac Type Severity Reaction Status Date / Time No Known Allergies Allergy Verified 02/26/19 14:20 Home Medications: Home Medication List Medication Instructions Recorded Confirmed Last Taken Type Amiodarone HCl 1 tab PO DAILY 02/11/19 02/26/19 02/26/19 History Carvedilol [Coreg] 2 tab PO BID 02/11/19 02/26/19 02/26/19 History LISINOpril [Prinivil] 20 mg PO DAILY 02/11/19 02/26/19 02/26/19 History Levothyroxine [Synthroid] 25 mcg PO DAILY 02/11/19 02/26/19 02/10/19 History Nitroglycerin Sl [Nitroglycerin] 0.4 mg SUBLINGUAL PRN PRN MDD 0.12 02/11/19 02/26/19 02/26/19 History Rivaroxaban [Xarelto] 1 tab PO DAILY 02/11/19 02/26/19 02/25/19 History Spironolactone 0.5 tab PO DAILY 02/11/19 02/26/19 02/25/19 History Levofloxacin [Levaquin] 500 mg PO DAILY #10 tab 02/19/19 02/26/19 02/26/19 Rx - History of Present Illness-Syncope/Dizzy Nature of Presenting Problem: Patient is a 73 yo M with PMH of paroxysmal aFib on Eliquis and Amiodarone, s/p PPM, recently hospitalized for acute diverticulitis (still on Levaquin) and SHARON, presenting with 2 days of worsening SOB and palpitations, patient's at bedside reports 2 episodes of pre-syncope yesterday- states patient became pale and diaphoretic prior to episodes, patient recalls having palpitations and feel ing lightheaded prior to reported episodes. Additionally, patient reports watery diarrhea and poor oral intake x 1 week, he denies recurrent abdominal pain, N/V. On EMS arrival, patient was found to be hypotensive, tachycardic and tachypnic, was given fluid bolus and transported to the ED. If witnessed syncope, by whom?: Loss of Consciousness: no loss of consciousness Similar symptoms previously: reports: previous diagnosis (Recent admission for acute diverticulitis and SHARON) - Dizziness Severity in ED: reports: mild Dizziness Related Current/Associated Symptoms: reports: lightheaded Any recent trauma/injury?: reports: none Review of Systems - Adult - REVIEW OF SYSTEMS - ADULT Constitutional: reports: fatique, other (Debility). denies: chills, fever Eyes: reports: no symptoms reported Ears, Nose, Mouth & Throat: reports: no symptoms reported Cardiovascular: reports: palpitations, other (Pre-syncope) Respiratory: reports: shortness of breath Gastrointestinal: reports: diarrhea, poor appetite. denies: abdominal pain, nausea, rectal bleeding, vomiting Genitourinary: reports: no symptoms reported Musculoskeletal: reports: no symptoms reported Integumentary: reports: no symptoms reported Neurological: reports: no symptoms reported Psychiatric: reports: no symptoms reported Endocrine: reports: no symptoms reported Hematologic/Lymphatic: reports: no symptoms reported Allergic/Immunologic: reports: no symptoms reported All Other Systems: Reviewed and Negative Past History - Adult - PAST MEDICAL HISTORY-ADULT Review of Records: reports: Old Records Reviewed, Nursing Assessment Review, Medications Reviewed, Social history reviewed & non-contributory. Major Childhood Illnesses: reports: denies history Cardiovascular: reports: denies history Respiratory: reports: denies history Gastrointestinal: reports: denies history Obstetrical/Gynecological: reports: denies history Genitourinary: reports: denies history Musculoskeletal: reports: denies history Neurological: reports: denies history Endocrine/Immune: reports: denies history Other Conditions: reports: denies history - FAMILY HISTORY Family History: reviewed, not pertinent Physical Exam-General - PHYSICAL EXAM-ADULT Initial Vital Signs Reviewed: Yes (VS during examination: HR 150, RR 21, BP 100/62, [id number] - CONSTITUTIONAL General Appearance: appears well, alert, no apparent distress - EYES Eyes: PERRL/EOMI, pale conjunctivae - HEAD, EARS, NOSE, MOUTH & THROAT HENMT: normocephalic/atraumatic - NECK Neck: normal inspection - RESPIRATORY Respiratory: chest non-tender, lungs clear, normal breath sounds - CARDIOVASCULAR Cardiovascular: no edema, irregularly irregular - CHEST (BREASTS) Chest/Breast: deferred - GASTROINTESTINAL (ABDOMEN) Abdominal Exam: normal bowel sounds, non tender, soft, no organomegaly - LYMPHATIC Lymphatic: no adenopathy - MUSCULOSKELETAL Back Exam: normal inspection Extremity: non-tender, normal inspection, no pedal edema, no calf tenderness - SKIN Integumentary: pallor - NEUROLOGIC Neurologic: grossly normal - PSYCHIATRIC Psych/Mental Status: normal mood/affect Progress - PLAN OF CARE/RESULTS Progress/Plan/Lab Results: Vital Signs - 8 hr 02/26/19 13:40 02/26/19 13:56 02/26/19 13:57 Temperature 97.8 F Pulse Rate 77 124 H 112 H Respiratory Rate 20 15 21 Blood Pressure 58/48 101/65 O2 Sat by Pulse Oximetry 99 02/26/19 14:00 02/26/19 14:15 02/26/19 14:18 Temperature Pulse Rate 117 H 132 H 116 H Respiratory Rate 20 23 22 Blood Pressure 97/69 O2 Sat by Pulse Oximetry 93 L 02/26/19 14:20 02/26/19 14:23 02/26/19 14:25 Temperature Pulse Rate 123 H 128 H 135 H Respiratory Rate 21 23 23 Blood Pressure 91/60 95/70 86/63 O2 Sat by Pulse Oximetry 94 L 95 96 02/26/19 14:28 02/26/19 14:29 02/26/19 14:30 Temperature Pulse Rate 128 H 137 H 120 H Respiratory Rate 21 25 H 20 Blood Pressure 89/65 78/66 93/74 O2 Sat by Pulse Oximetry 95 95 88 L 02/26/19 14:32 02/26/19 14:34 02/26/19 14:36 Temperature Pulse Rate 134 H 117 H 115 H Respiratory Rate 20 19 23 Blood Pressure 103/63 83/56 88/74 O2 Sat by Pulse Oximetry 90 L 94 L 89 L 02/26/19 14:38 02/26/19 14:40 02/26/19 14:42 Temperature Pulse Rate 115 H 132 H 121 H Respiratory Rate 25 H 22 24 Blood Pressure 92/68 89/52 93/57 O2 Sat by Pulse Oximetry 89 L 81 L 92 L 02/26/19 14:44 02/26/19 14:46 02/26/19 14:48 Temperature Pulse Rate 104 H 101 H 99 H Respiratory Rate 23 25 H 25 H Blood Pressure 94/78 80/64 93/76 O2 Sat by Pulse Oximetry 89 L 91 L 93 L 02/26/19 14:50 02/26/19 14:52 02/26/19 14:57 Temperature Pulse Rate 111 H 99 H 107 H Respiratory Rate 24 25 H 24 Blood Pressure 98/71 90/68 100/59 O2 Sat by Pulse Oximetry 95 92 L 02/26/19 15:00 02/26/19 15:02 02/26/19 15:05 Temperature Pulse Rate 109 H 103 H 108 H Respiratory Rate 21 17 18 Blood Pressure 94/69 108/62 90/68 O2 Sat by Pulse Oximetry 89 L 02/26/19 15:07 02/26/19 15:10 02/26/19 15:13 Temperature Pulse Rate 96 H 104 H 98 H Respiratory Rate 21 19 21 Blood Pressure 97/83 92/73 92/54 O2 Sat by Pulse Oximetry 02/26/19 15:15 02/26/19 15:17 02/26/19 15:20 Temperature Pulse Rate 109 H 112 H 112 H Respiratory Rate 21 20 22 Blood Pressure 106/67 101/68 109/69 O2 Sat by Pulse Oximetry 02/26/19 15:23 02/26/19 15:26 02/26/19 15:31 Temperature Pulse Rate 113 H 103 H 113 H Respiratory Rate 26 H 26 H 18 Blood Pressure 98/72 108/67 94/71 O2 Sat by Pulse Oximetry 02/26/19 15:32 02/26/19 15:35 02/26/19 15:37 Temperature Pulse Rate 146 H 104 H 115 H Respiratory Rate 18 20 20 Blood Pressure 100/71 101/74 108/77 O2 Sat by Pulse Oximetry 100 100 02/26/19 15:40 02/26/19 15:43 02/26/19 15:45 Temperature Pulse Rate 119 H 145 H 113 H Respiratory Rate 19 24 22 Blood Pressure 119/78 93/65 104/79 O2 Sat by Pulse Oximetry 93 L 95 95 02/26/19 15:47 02/26/19 15:50 02/26/19 16:10 Temperature Pulse Rate 118 H 127 H 105 H Respiratory Rate 20 20 18 Blood Pressure 92/67 107/81 102/72 O2 Sat by Pulse Oximetry 95 95 02/26/19 16:13 02/26/19 16:15 02/26/19 16:17 Temperature Pulse Rate 112 H 135 H 124 H Respiratory Rate 28 H 21 17 Blood Pressure 104/82 104/68 113/75 O2 Sat by Pulse Oximetry 02/26/19 16:21 02/26/19 16:23 02/26/19 16:25 Temperature Pulse Rate 119 H 118 H 124 H Respiratory Rate 23 20 20 Blood Pressure 108/69 111/96 91/78 O2 Sat by Pulse Oximetry 99 98 98 02/26/19 16:26 02/26/19 16:30 02/26/19 16:35 Temperature Pulse Rate 112 H 117 H 124 H Respiratory Rate 22 23 Blood Pressure 95/68 109/70 114/78 O2 Sat by Pulse Oximetry 96 94 L 95 02/26/19 16:40 02/26/19 16:45 02/26/19 16:50 Temperature Pulse Rate 107 H 115 H 112 H Respiratory Rate 18 16 25 H Blood Pressure 112/70 117/92 106/90 O2 Sat by Pulse Oximetry 02/26/19 16:55 02/26/19 17:01 02/26/19 17:02 Temperature Pulse Rate 134 H 97 H 123 H Respiratory Rate 22 21 16 Blood Pressure 106/77 88/35 113/68 O2 Sat by Pulse Oximetry 98 94 L 02/26/19 17:05 02/26/19 17:10 02/26/19 17:19 Temperature Pulse Rate 132 H 106 H 111 H Respiratory Rate 23 23 21 Blood Pressure 97/72 98/73 100/73 O2 Sat by Pulse Oximetry 95 97 02/26/19 17:20 Temperature Pulse Rate 106 H Respiratory Rate 22 Blood Pressure 104/57 O2 Sat by Pulse Oximetry 100 Laboratory Results - last 24 hr 02/26/19 02/26/19 02/26/19 13:57 13:57 13:57 WBC 11.43 H RBC 6.13 H Hgb 17.0 Hct 53.7 H MCV 87.6 MCH 27.7 MCHC 31.7 L RDW Std Deviation 13.8 Plt Count 321 MPV 11.2 H Immature Gran % (Auto) 0.5 Neut % (Auto) 58.6 Lymph % (Auto) 32.6 Gibson % (Auto) 6.9 Eos % (Auto) 1.1 Baso % (Auto) 0.3 Immature Gran # (Auto) 0.06 H Neut # (Auto) 6.68 H Lymph # (Auto) 3.73 H Gibson # (Auto) 0.79 H Eos # (Auto) 0.13 Baso # (Auto) 0.04 PT INR PTT (Actin FS) Sodium 138 Potassium 6.3 H* Chloride 101 Carbon Dioxide 25 Anion Gap 12 BUN 42 H Creatinine 2.1 H Estimated GFR/1.73 m2 31 BUN/Creatinine Ratio 20 Glucose 133 H Calculated Osmolality 288 Calcium 10.4 H Total Bilirubin 0.45 AST 20 ALT 25 Alkaline Phosphatase 83 Creatine Kinase 37 Troponin T Ult-J-Doruwzbbudc Pept 546 H Total Protein 6.6 Albumin 3.8 Globulin 2.8 Albumin/Globulin Ratio 1.4 Plasma Lactate Urine Source Urine Color Urine Turbidity Urine pH Ur Specific [place] Urine Protein Ur Glucose (Stick) Ur Ketones (Stick) Urine Blood Urine Nitrite Urine Bilirubin Urobilinogen Dipstick Urine Leukocytes Urine WBC (Auto) Urine RBC (Auto) U Epithel Cells (Auto) Urine Bacteria (Auto) Urine Crystals Small Round Cells Urine Casts Urine Yeast-like Cells 02/26/19 02/26/19 02/26/19 13:57 13:57 14:36 WBC RBC Hgb Hct MCV MCH MCHC RDW Std Deviation Plt Count MPV Immature Gran % (Auto) Neut % (Auto) Lymph % (Auto) Gibson % (Auto) Eos % (Auto) Baso % (Auto) Immature Gran # (Auto) Neut # (Auto) Lymph # (Auto) Gibson # (Auto) Eos # (Auto) Baso # (Auto) PT 26.2 H INR 2.33 PTT (Actin FS) 40.6 Sodium Potassium Chloride Carbon Dioxide Anion Gap BUN Creatinine Estimated GFR/1.73 m2 BUN/Creatinine Ratio Glucose Calculated Osmolality Calcium Total Bilirubin AST ALT Alkaline Phosphatase Creatine Kinase Troponin T 0.049 Tfd-A-Rsmyumjnmzh Pept Total Protein Albumin Globulin Albumin/Globulin Ratio Plasma Lactate 2.0 Urine Source Urine Color Urine Turbidity Urine pH Ur Specific [place] Urine Protein Ur Glucose (Stick) Ur Ketones (Stick) Urine Blood Urine Nitrite Urine Bilirubin Urobilinogen Dipstick Urine Leukocytes Urine WBC (Auto) Urine RBC (Auto) U Epithel Cells (Auto) Urine Bacteria (Auto) Urine Crystals Small Round Cells Urine Casts Urine Yeast-like Cells 02/26/19 17:17 WBC RBC Hgb Hct MCV MCH MCHC RDW Std Deviation Plt Count MPV Immature Gran % (Auto) Neut % (Auto) Lymph % (Auto) Gibson % (Auto) Eos % (Auto) Baso % (Auto) Immature Gran # (Auto) Neut # (Auto) Lymph # (Auto) Gibson # (Auto) Eos # (Auto) Baso # (Auto) PT INR PTT (Actin FS) Sodium Potassium Chloride Carbon Dioxide Anion Gap BUN Creatinine Estimated GFR/1.73 m2 BUN/Creatinine Ratio Glucose Calculated Osmolality Calcium Total Bilirubin AST ALT Alkaline Phosphatase Creatine Kinase Troponin T Eir-P-Mlbxhqihaxu Pept Total Protein Albumin Globulin Albumin/Globulin Ratio Plasma Lactate Urine Source CATH Urine Color YELLOW Urine Turbidity HAZY Urine pH 5.5 Ur Specific [place] 1.024 Urine Protein 30 A Ur Glucose (Stick) NEGATIVE Ur Ketones (Stick) NEGATIVE Urine Blood NEGATIVE Urine Nitrite NEGATIVE Urine Bilirubin NEGATIVE Urobilinogen Dipstick NORMAL Urine Leukocytes NEGATIVE Urine WBC (Auto) <10 Urine RBC (Auto) <10 U Epithel Cells (Auto) <10 Urine Bacteria (Auto) NEGATIVE Urine Crystals NONE SEEN Small Round Cells NONE SEEN Urine Casts NONE SEEN Urine Yeast-like Cells NONE SEEN Orders Category Date Time Status Admit - [facility] Routine AdmDCTranf 02/26/19 16:14 Active Activity - Bed Rest with BRP ORDERED Care 02/26/19 16:13 Active Call Admitting on Arrival AT ADMISSION Care 02/26/19 16:15 Active Cardiac Monitoring DIRECTED Care 02/26/19 13:50 Active Nursing- MD Consult Request ROUTINE Care 02/26/19 16:17 Active Oxygen Therapy- ED Nursing DIRECTED Care 02/26/19 13:50 Active Saline Loc NOW Care 02/26/19 13:50 Active Straight Catheterization ORDERED Care 02/26/19 15:33 Active Vital Signs Order ROUTINE Care 02/26/19 16:13 Completed Z-Document. for Tele Applied ORDERED Care 02/26/19 16:15 Active Physician/Provider Consults Routine Cons 02/26/19 16:16 Ordered Heart Healthy Diet Diet 02/26/19 16:16 Active NPO Except MEDICATIONS Diet 02/27/19 00:01 Active CHEST-PORTABLE [RAD] Stat Exams 02/26/19 14:[address] HEAD W/O CONTRAST [CT] Stat Exams 02/26/19 14:08 Completed BASIC METABOLIC PANEL [CHEM] Routine Lab 02/27/19 06:00 Ordered BLOOD CULTURE [BLDCUL] Stat Lab 02/26/19 14:35 Results CBC WITH ELECTRONIC DIFF [HEME] Stat Lab 02/26/19 13:57 Completed CK PROFILE [SP CHEM] Stat Lab 02/26/19 13:57 Completed COMPREHENSIVE METABOLIC PANEL [CHEM] Stat Lab 02/26/19 13:57 Completed LACTATE, PLASMA [CHEM] Stat Lab 02/26/19 14:36 Completed PRO B-NATRIURETIC PEPTIDE Stat Lab 02/26/19 13:57 Completed PROTIME WITH INR [COAG] Stat Lab 02/26/19 13:57 Completed PTT [COAG] Stat Lab 02/26/19 13:57 Completed TROPONIN T Stat Lab 02/26/19 13:57 Completed TSH Routine Lab 02/27/19 06:00 Ordered UA [URINALYSIS W/POSS RFLX CULT] [URINALYSIS] Stat Lab 02/26/19 17:17 Completed URINE MANUAL MICROSCOPIC [URINALYSIS] Stat Lab 02/26/19 17:17 Completed 0.9% Sodium Chloride Inj [Ns] 1,000 ml Med 02/26/19 14:04 Discontinued .ROUTE As directed 0.9% Sodium Chloride Inj [Ns] 1,000 ml Med 02/26/19 16:30 Discontinued IV 75 mls/hr 0.9% Sodium Chloride Inj [Ns] 1,000 ml Med 02/26/19 14:08 Discontinued IV 999 mls/hr Acetaminophen [Tylenol] Med 02/26/19 16:13 Active 650 mg PO Q6H PRN PRN Amiodarone [Cordarone] Med 02/27/19 09:00 Active 200 mg PO DAILY Aspirin Med 02/26/19 13:50 Discontinued 325 mg PO NOW ONE Diltiazem [Cardizem] Med 02/26/19 14:07 Discontinued 10 mg IV NOW ONE Diltiazem [Cardizem] Med 02/26/19 15:38 Discontinued 10 mg IV NOW ONE Enoxaparin [Lovenox] Med 02/26/19 21:00 Once 90 mg SUBQ ONCE ONE Metoprolol [Lopressor] Med 02/26/19 16:55 Active 5 mg IV Q6H PRN PRN Piperacillin/Tazobactam [Zosyn] 4.5 gm Med 02/26/19 16:37 Discontinued 0.9% Sodium Chloride Inj [Ns] 100 ml IV NOW Sodium Polystyrene [Kayexalate] Med 02/26/19 15:33 Discontinued 30 gm PO NOW ONE Vancomycin 1 gm/Ns Med 02/26/19 16:37 Discontinued 1 gm in 250 ml IV NOW Telemetry [OM.EQ] Routine Oth 02/26/19 16:13 Active EKG [EKG] Stat Ther 02/26/19 13:50 Draft Transfer/Admit Order [TRANSFER] Routine Transfer 02/26/19 16:18 Completed In the ED, patient was noted to be intermittently hypotensive with associated paroxysms of aFib w/RVR, rate was controlled with a total of 20 mg Cardizem IVP, BP improved s/p NS bolus and maintenance fluids were started, labs significant for mild leukocytosis w/left shift and lactic acid wnl, but patient meeting 2/4 SIRS criteria (tachypnea, tachycardia), at risk for early sepsis, hence broad spectrum Abx were given in the ED after blood cultures were drawn. Patient seen and evaluated by cardiology (Dr. Stringer) in the ED and patient endorsed for admission. Result Diagrams: 02/26/19 13:57 02/26/19 13:57 - EKG 1 Time of EKG reading by physician:: 15:00 EKG Read and Signed by:: Ofelia Louie EKG Interpretation (*Must complete 3 of following elements*): Abnormal Rate: 114 Rhythm: Afib QRS: RBB ST Wave: non-specific ST changes Prior EKG Comparison: unchanged from prior (02/11/2019) Comments: Prolonged QTc - XRAY 1 XRAY Study: Chest (CHEST-PORTABLE - 02/26/2019 INDICATION: SOB COMPARISON: 02/11/2019 FINDINGS: The lungs are normally expanded and clear. Heart size and mediastinal contours are normal. No pneumothorax or pleural effusion. Stable left-sided pacemaker in good position. IMPRESSION: Negative exam. Electronically signed by Tomas Brock 02/26/2019 2:19 PM) Impression: See EMR Report - CT/MRI 1 CT Study: Head Impression: See EMR Report (Signed EXAM: CT HEAD W/O CONTRAST 02/26/2019 HISTORY: Pre-syncope TECHNIQUE: This exam was performed using automated exposure control, adjustment of mA or kV according to patient size, and/or use of iterative reconstruction technique. COMMENT: There is no evidence of mass effect, bleed, or abnormal extra-axial fluid collection. The calvarium is intact. The visualized paranasal sinuses are clear. There is cortical and subcortical lucency in the right parietal convexity consistent with a previous infarct. There are calcifications in the internal carotid arteries bilaterally. IMPRESSION: Chronic ischemic changes. No evidence of acute intracranial dise ase. Electronically signed by Siva Garza 02/26/2019 4:17 PM) - CONSULTS/PCP/HOSPITALIST Notification #1 *Consult/PCP/Hospitalist*: Dr. Mckinney Time Discussed: 15:35 Reason/Comments: Inpatient admission for possible Sepsis, Dehydration, SHARON and aFib w/RVR Consult Disposition: Admit #2 Consult: Dr. Stringer Time Discussed: 16:32 Departure - Departure Date of Disposition Decision: 02/26/19 Time of Disposition Decision: 16:30 DIAGNOSIS: Hyperkalemia, SHARON (acute kidney injury), Dehydration, Atrial fibrillation with RVR, Diarrheal disease, Pre-syncope Sepsis Qualifiers: Sepsis type: sepsis due to unspecified organism Sepsis acute organ dysfunction status: without acute organ dysfunction Qualified Code(s): A41.9 - Sepsis, u nspecified organism Afib Qualifiers: Atrial fibrillation type: paroxysmal Qualified Code(s): I48.0 - Paroxysmal atrial fibrillation Disposition: ADMITTED INPATIENT 09 Certified Medical Emergency: Emergent Condition: Stable - Critical Care Note This patient required my direct & personal management of CC.: Yes Total Time (mins): 45 Critical Care Statement: This patient required my direct personal management to treat or rule out processes, the absence of which, could potentiallly result in sudden, clinically significant life or limb threatening deterioration. Attestation - Physician/ JORDI Attestation Patient care was provided by Advanced Practice Provider:: No The physician spent face to face time with patient:: Yes Advanced Practice Provider documentation review:: Supervising physician onsite and consulted in the evaluation and care of this patient. The physician did have a face to face encounter with the patient.
--- NOTE | 2019-02-26 14:22 | Diag Imaging Result Doc PS360 ---
CHEST-PORTABLE - 02/26/2019 INDICATION: SOB COMPARISON: 02/11/2019 FINDINGS: The lungs are normally expanded and clear. Heart size and mediastinal contours are normal. No pneumothorax or pleural effusion. Stable left-sided pacemaker in good position. IMPRESSION: Negative exam. Electronically signed by Tomas Brock 02/26/2019 2:19 PM
[2019-02-26 14:27] LABS: BASO# 0.04 X1000 (0.0-0.2); BASO% 0.3 % (0.0-0.8); EOS# 0.13 X1000 (0.0-0.7); EOS% 1.1 % (0.0-10.0); HEMATOCRIT 53.7 % (42.0-52.0); IMM GRAN# 0.06 X1000 (0.0-0.04); IMM GRAN% 0.5 % (0.0-0.5); LYMPH# 3.73 X1000 (1.2-3.4); LYMPH% 32.6 % (20.5-51.1); MCH 27.7 PG (27-31); MCHC 31.7 g/dL (33-37); MCV 87.6 FL (81-99); MONO# 0.79 X1000 (0.11-0.59); MONO% 6.9 % (1.7-9.3); MPV 11.2 FL (7.4-10.4); NEUT# 6.68 X1000 (1.4-6.5); NEUT% 58.6 % (42.2-75.2); PLT 321 X1000 (130-400); RBC 6.13 XMIL (4.7-6.1); RDW 13.8 % (11.5-14.5); WBC 11.43 X1000 (4.8-10.8)
[2019-02-26 14:34] LABS: INR 2.33; PROTIME 26.2 Seconds (11.0-16.0)
[2019-02-26 14:35] LABS: PTT 40.6 Seconds (22.3-41.8)
--- NOTE | 2019-02-26 14:49 | EKG Report ---
Test Performed on : 02/26/2019 2:07:53 PM Test Reason : Palpitations Blood Pressure : / mmHG Vent. Rate : 114 BPM Atrial Rate : 133 BPM P-R Int : 000 ms QRS Dur : 142 ms QT Int : 392 ms P-R-T Axes : 000 060 013 degrees QTc Int : 540 ms Atrial fibrillation. with rapid ventricular response. Right bundle branch block Abnormal ECG When compared with ECG of 11-FEB-2019 05:17, (Unconfirmed) No significant change was found Unconfirmed Result
[2019-02-26 15:20] LABS: ALB/GLOB RATIO 1.4; ALBUMIN 3.8 g/dL (3.5-5.0); CALCIUM 10.4 mg/dL (8.8-10.2); CREATININE 2.1 mg/dL (0.7-1.2); POTASSIUM 6.3 mmol/L (3.5-5.1); TOTAL BILIRUBIN 0.45 mg/dL (0.20-1.00); TOTAL PROTEIN 6.6 g/dL (6.3-8.3)
[2019-02-26] MEDS ORDERED: KAYEXALATE PO ONE (15:33)
[2019-02-26] MEDS ORDERED: TYLENOL PO PRN (16:13)
--- NOTE | 2019-02-26 16:19 | Diag Imaging Result Doc PS360 ---
EXAM: CT HEAD W/O CONTRAST 02/26/2019 HISTORY: Pre-syncope TECHNIQUE: This exam was performed using automated exposure control, adjustment of mA or kV according to patient size, and/or use of iterative reconstruction technique. COMMENT: There is no evidence of mass effect, bleed, or abnormal extra-axial fluid collection. The calvarium is intact. The visualized paranasal sinuses are clear. There is cortical and subcortical lucency in the right parietal convexity consistent with a previous infarct. There are calcifications in the internal carotid arteries bilaterally. IMPRESSION: Chronic ischemic changes. No evidence of acute intracranial disease. Electronically signed by Siva Garza 02/26/2019 4:17 PM
[2019-02-26] MEDS ORDERED: NS 1,000 ML IV SCH (16:30)
[2019-02-26] MEDS ORDERED: VANCOMYCIN 1 GM/NS 1 GM/250 ML IVPB IV ONE (16:37)
[2019-02-26] MEDS ORDERED: ZOSYN 4.5 GM in NS 100 ML IV ONE (16:37)
[2019-02-26] MEDS ORDERED: LOPRESSOR IV PRN (16:55)
[2019-02-26 17:32] LABS: URINE SOURCE CATH
[2019-02-26 17:36] LABS: BILIRUBIN URINE NEGATIVE (NEGATIVE); BLOOD URINE NEGATIVE (NEGATIVE); COLOR YELLOW; GLUCOSE URINE NEGATIVE (NEGATIVE); KETONE URINE NEGATIVE (NEGATIVE); LEUKOCYTES URINE NEGATIVE (NEGATIVE); NITRITE URINE NEGATIVE (NEGATIVE); PH URINE 5.5; PROTEIN URINE 30 mg/dL (NEGATIVE); SP GRAVITY URINE 1.024; TURBIDITY URINE HAZY (CLEAR); UROBILINOGEN URINE NORMAL (NORMAL)
[2019-02-26 17:39] LABS: UR EPITHELIAL CELLS <10 /HPF (<10); URINE BACTERIA NEGATIVE /HPF; URINE RBC <10 /HPF (<10); URINE WBC <10 /HPF (<10)
[2019-02-26 17:58] LABS: URINE CASTS NONE SEEN; URINE CRYSTALS NONE SEEN; URINE SMALL ROUND CELLS NONE SEEN; URINE YEAST NONE SEEN
--- NOTE | 2019-02-26 18:45 | CARDIOLOGY CONSULTATION ---
DATE: 02/26/2019 CHIEF COMPLAINT ON PRESENTATION: Palpitations. HISTORY OF PRESENT ILLNESS: Mr. Menezes is a 73-year-old white male with a history of atrial fib, managed by Dr. Navarro in [place]. He presented for evaluation of shortness of breath, weakness, and heart racing. The patient was found to be in atrial fibrillation. He had a recent history of diverticulitis treated with Levaquin. In addition, he has reported decreased oral intake and significant amounts of diarrhea. PAST MEDICAL HISTORY: 1. Significant for atrial fibrillation. 2. Hypertension. 3. Recent history of diverticulitis. SOCIAL HISTORY: He is . He does not smoke. FAMILY HISTORY: Significant for hypertension. REVIEW OF SYSTEMS: A 10 system review of systems is negative except for those things mentioned in HPI. PHYSICAL EXAMINATION: Vital Signs: He is afebrile. His heart rate is in the low 100s to 110. Blood pressure 109/69. General: He is in no acute distress. HEENT: Oropharynx is moist. Normal dentition. Eye examination shows pink conjunctivae, white sclerae. Neck: Shows no obvious thyromegaly or thyroid tenderness. Cardiovascular: He is in a tachycardic and irregular rhythm. He has no obvious murmurs. He has no S3. He has no lower extremity edema. Chest: Sounds clear bilaterally. He has no increased work of breathing. Abdomen: Soft, nontender, nondistended. He has no obvious organomegaly. Skin: Warm and dry throughout without any rashes. Neurological: Moving all extremities well. He has no lateralizing deficits. PERTINENT DATA: His electrocardiogram shows atrial fib, right bundle branch block, rate of 114 beats per minute. His head CT was unremarkable for any acute findings. He has chronic ischemic changes. His chest x-ray was unremarkable. His lab data shows a white count of 11.4, his hematocrit is 53, his platelet count is 321,000. His sodium is 138, potassium 6.3, BUN 42, creatinine 2.1. His last creatinine was 0.8 on the 30. His proBNP is 546. His troponin is negative. ASSESSMENT: Mr. Menezes is a 73-year-old gentleman with a history of paroxysmal atrial fibrillation. PLAN: At this point, he is in acute kidney injury, likely secondary to volume depletion secondary to decreased oral intake and diarrhea. Considering his recent use of Levaquin, I would plan on checking a C. difficile toxin. He has been resuscitated with fluids. We will re-initiate the amiodarone. I will stop the Xarelto given his renal function and give him a single dose of Lovenox tonight. We will place him n.p.o. this evening for consideration of possible transesophageal echo and cardioversion in the morning. This will be dependent on the patient's renal function. We would like to get his renal function back in order and get him a bit more hydrated prior to cardioverting him. The patient reports that he is in agreement with this plan. cc: MD Lauro Montoya MD
[2019-02-26] MEDS ORDERED: LOVENOX SUBQ ONE (21:00)
--- NOTE | 2019-02-26 21:41 | HISTORY AND PHYSICAL ---
CHIEF COMPLAINT: 1. Palpitations. 2. Shortness of breath. 3. Diarrhea. 4. Dizziness. HISTORY OF PRESENT ILLNESS: He is a 73-year-old white male with chronic atrial fibrillation on Xarelto, amiodarone, status post pacemaker with ejection fraction 40%. Recently admitted for diverticulitis and dehydration. Sent home on Levaquin. He was doing well. He had diarrhea yesterday. Started having shortness of breath, dizziness. He came to the ER today. He has an appointment to see in my office. The patient was found to have rapid atrial fibrillation, hypotension, dehydration, acute kidney injury. He was admitted at [facility]. Cardiology consult was obtained. He had appointment to see tomorrow Dr. LINDSAY in [facility] in [place]. Carlos Stringer was consulted. He is getting IV fluids and also obtained the stool cultures to rule out Clostridium difficile. As a result, readmission was warranted. PAST MEDICAL HISTORY: 1. Hypothyroidism. 2. Recent diverticulosis. 3. Chronic atrial fibrillation. 4. Hypertension. 5. Chronic systolic heart failure. 6. History of right bundle branch block. 7. Spondylosis of lumbar spine. 8. Bilateral fat containing inguinal hernias. PAST SURGICAL HISTORY: 1. Right inguinal hernia, repaired [place] [address] Rob. 2. Left knee surgery. 3. 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 ALLERGIES: Not known. 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 . Lives in [place]. He does use smokeless tobacco. No alcohol. No drug abuse. FAMILY HISTORY: Mother had Alzheimer's. Father had heart failure. MEDICATIONS: 1. Amiodarone 200 daily. 2. Coreg 25 p.o. b.i.d. 3. Synthroid 25 mcg daily. 4. Aldactone 25 half a tablet daily. 5. Lisinopril 20 daily. 6. Xarelto 20 daily. 7. Levaquin 500 daily. HEALTH MAINTENANCE: Pneumococcal vaccine 23 on 02/19/2019. REVIEW OF SYSTEMS: HEENT: No headache. No vision problem, dizzy. No earache. No sore throat. Neck: No goiter. No lymphadenopathy. No bruit. Cardiopulmonary: No chest pain, shortness of breath, palpitation, low blood pressure with dizziness. GI: Diarrhea. No abdominal pain. No swelling of legs. No joint pain. Neurologic: No focal symptoms or weakness. PHYSICAL EXAMINATION: VITAL SIGNS: Temperature is 97.8 degrees, tachycardic, blood pressure is 80/64, 95% on room air. HEENT: Atraumatic, normocephalic. Pupils equal, react to light. Slightly pale. No jaundice. NECK: Supple. No lymphadenopathy. CHEST: Bilateral air entry. HEART: Irregular heart sounds. No murmur. ABDOMEN: Belly is soft, nontender. No signs of peritonitis. EXTREMITIES: No peripheral edema or cyanosis. NEUROLOGIC: No obvious neurological deficits. INVESTIGATIONS: White cell count 11.4, hematocrit 53, platelets 321,000. PT 26, INR 2.3. Sodium 138, potassium 6.3, BUN 22, creatinine 2.1. LFTs were normal. Cardiac enzymes were normal. ProBNP was normal. TSH is pending. Urinalysis is negative. CT head: Chronic ischemic changes, nothing acute. Chest x-ray negative exam. Stable left-sided pacemaker in good position. ASSESSMENT AND PLAN: A 73-year-old white gentleman admitted to the hospital with: 1. Hypotension, due to diarrhea, in light of recently treated with antibiotics for diverticulitis. Plan is rule out Clostridium difficile. Stool for white cells, culture and sensitivity, Clostridium difficile. 2. Hypotension. Gentle hydration. 3. Azotemia, due to low blood pressure. Follow up on SMA7. 4. Atrial fibrillation, rate controlled as per Dr. Stringer. I appreciated his consult. He is on Xarelto. INR is 2.3. 5. Hypothyroidism, on Synthroid. 6. He is on Cordarone and Xarelto for atrial fibrillation and he was seen before by Dr. Russell, and also status post pacemaker. Follow up on the labs in the morning. 7. Hyperkalemia, due to combination of lisinopril, spironolactone, and plus kidney injury. Follow up on SMA7. 8. I appreciated Cardiology consult and followup. cc: MD KAVIN Deleon
[2019-02-27] MEDS ORDERED: MORPHINE IV PRN (03:30)
[2019-02-27] MEDS: NITROGLYCERIN SL PRN ×5 (03:30→17:42)
[2019-02-27] MEDS ORDERED: ASPIRIN PO ONE (03:40)
[2019-02-27 04:40] LABS: CALCIUM 9.4 mg/dL (8.8-10.2); CREATININE 1.6 mg/dL (0.7-1.2); POTASSIUM 4.5 mmol/L (3.5-5.1)
--- NOTE | 2019-02-27 04:52 | EKG Report ---
Test Performed on : 02/27/2019 03:26:19 AM Test Reason : cp Blood Pressure : / mmHG Vent. Rate : 175 BPM Atrial Rate : 122 BPM P-R Int : 000 ms QRS Dur : 126 ms QT Int : 330 ms P-R-T Axes : 000 212 035 degrees QTc Int : 563 ms Critical Test Result: High HR Undetermined rhythm Right bundle branch block Abnormal ECG When compared with ECG of 27-FEB-2019 03:24, (Unconfirmed) Current undetermined rhythm precludes rhythm comparison, needs review Questionable change in QRS axis Unconfirmed Result
--- NOTE | 2019-02-27 04:52 | EKG Report ---
Test Performed on : 02/27/2019 03:15:56 AM Test Reason : increased HR Blood Pressure : / mmHG Vent. Rate : 153 BPM Atrial Rate : 096 BPM P-R Int : 000 ms QRS Dur : 136 ms QT Int : 354 ms P-R-T Axes : 000 220 040 degrees QTc Int : 565 ms Critical Test Result: High HR Undetermined rhythm Right bundle branch block Abnormal ECG When compared with ECG of 27-FEB-2019 03:15, (Unconfirmed) Current undetermined rhythm precludes rhythm comparison, needs review Unconfirmed Result
[2019-02-27] MEDS: SYNTHROID PO SCH (06:14)
--- NOTE | 2019-02-27 07:07 | EKG Report ---
Test Performed on : 02/27/2019 06:43:35 AM Test Reason : chest pain Blood Pressure : / mmHG Vent. Rate : 140 BPM Atrial Rate : 110 BPM P-R Int : 000 ms QRS Dur : 136 ms QT Int : 394 ms P-R-T Axes : 000 093 039 degrees QTc Int : 601 ms Critical Test Result: High HR Wide QRS tachycardia. with occasional premature ventricular complexes. Right bundle branch block Possible Lateral infarct , age undetermined Abnormal ECG When compared with ECG of 27-FEB-2019 03:26, (Unconfirmed) Previous ECG has undetermined rhythm, needs review Unconfirmed Result
[2019-02-27] MEDS ORDERED: LOVENOX SUBQ ONE (07:37)
[2019-02-27] MEDS: NS 1,000 ML IV SCH ×2 (08:25→19:55)
[2019-02-27] MEDS ORDERED: CORDARONE PO SCH (09:00)
[2019-02-27] MEDS ORDERED: DIPRIVAN 1% ONE (11:07)
[2019-02-27] MEDS ORDERED: XYLOCAINE-MPF 1% 5 ML ONE (11:08)
[2019-02-27] MEDS ORDERED: XYLOCAINE 2% VISCOUS ONE (11:09)
[2019-02-27] MEDS ORDERED: SODIUM CHLORIDE 0.9% 10 ML ONE (11:09)
[2019-02-27] MEDS ORDERED: CLAVE TWINSITE 32 IN 11959 ONE (11:12)
[2019-02-27 11:27] LABS: HEMATOCRIT 48.3 % (42.0-52.0); HEMOGLOBIN 15.4 g/dL (14.0-18.0); MCH 27.9 PG (27-31); MCHC 31.9 g/dL (33-37); MCV 87.7 FL (81-99); MPV 11.4 FL (7.4-10.4); RBC 5.51 XMIL (4.7-6.1); RDW 13.7 % (11.5-14.5); WBC 10.97 X1000 (4.8-10.8)
--- NOTE | 2019-02-27 13:02 | EKG Report ---
Test Performed on : 02/27/2019 12:24:06 PM Test Reason : post cardioversion Blood Pressure : / mmHG Vent. Rate : 086 BPM Atrial Rate : 086 BPM P-R Int : 208 ms QRS Dur : 150 ms QT Int : 422 ms P-R-T Axes : 065 088 046 degrees QTc Int : 504 ms Normal sinus rhythm. Right bundle branch block Abnormal ECG When compared with ECG of 27-FEB-2019 06:43, (Unconfirmed) Sinus rhythm. has replaced Wide QRS tachycardia. Vent. rate has decreased BY 54 BPM Unconfirmed Result
--- NOTE | 2019-02-27 13:38 | EKG Report ---
Test Performed on : 02/27/2019 1:28:22 PM Test Reason : CHEST PAIN Blood Pressure : / mmHG Vent. Rate : 096 BPM Atrial Rate : 096 BPM P-R Int : 208 ms QRS Dur : 146 ms QT Int : 420 ms P-R-T Axes : 059 106 033 degrees QTc Int : 530 ms Normal sinus rhythm. Right bundle branch block Possible Lateral infarct , age undetermined Cannot rule out Inferior infarct , age undetermined Abnormal ECG When compared with ECG of 27-FEB-2019 12:24, (Unconfirmed) No significant change was found Unconfirmed Result
[2019-02-27] MEDS ORDERED: CORDARONE 150 MG/D5W 150 MG/100 ML IV.SOLN IV ONE (18:02)
[2019-02-27] MEDS ORDERED: CORDARONE 360 MG/D5W 360 MG/200 ML IV.SOLN IV ONE (18:02)
--- NOTE | 2019-02-27 18:13 | EKG Report ---
Test Performed on : 02/27/2019 5:51:45 PM Test Reason : rhythm change Blood Pressure : / mmHG Vent. Rate : 136 BPM Atrial Rate : 125 BPM P-R Int : 000 ms QRS Dur : 138 ms QT Int : 360 ms P-R-T Axes : 000 112 036 degrees QTc Int : 541 ms Undetermined rhythm Right bundle branch block Possible Lateral infarct (cited on or before 27-FEB-2019) Cannot rule out Inferior infarct (cited on or before 27-FEB-2019) Abnormal ECG When compared with ECG of 27-FEB-2019 13:28, (Unconfirmed) Current undetermined rhythm precludes rhythm comparison, needs review Unconfirmed Result
[2019-02-27] MEDS: LOVENOX SUBQ SCH (21:10)
--- NOTE | 2019-02-27 21:47 | PROGRESS NOTE ---
DATE: 02/27/2019 SUBJECTIVE: The patient had a rough night, and heart rate is going erratic. No chest pain. No diarrhea. OBJECTIVE: He was tachycardic. Blood pressure is slowly coming up. Chest is clear. Irregular heart sounds. Belly is soft, nontender. No obvious deficits. LABORATORY DATA: CBC: White cell count 10, hematocrit 48, platelets 224,000. Sodium 139, potassium 4.5, BUN 39, creatinine 1.6. Cardiac enzymes slightly positive. ASSESSMENT AND PLAN: 1. Rapid atrial fibrillation, symptomatic, not able to control with amiodarone and the patient is going for TATI for cardioversion. 2. Azotemia, improving. Continue IV fluids. 3. Hyperkalemia, better. 4. Hypotension. Gentle hydration and repeat the labs in the morning. CBC, BMP, magnesium, PT/INR, and diarrhea. Stool for Clostridium difficile toxin assay was negative. Positive troponin. Discussed with exec. creative director for possible stress test and will follow up. LEVEL OF DOCUMENTATION: 35 minutes. cc: Lauro Mckinney MD
[2019-02-28] MEDS ORDERED: CORDARONE 540 MG in D5W 289.2 ML IV ONE (00:02)
[2019-02-28 05:55] LABS: BASO# 0.02 X1000 (0.0-0.2); BASO% 0.3 % (0.0-0.8); EOS% 1.4 % (0.0-10.0); HEMOGLOBIN 14.7 g/dL (14.0-18.0); IMM GRAN# 0.02 X1000 (0.0-0.04); IMM GRAN% 0.3 % (0.0-0.5); LYMPH# 2.33 X1000 (1.2-3.4); LYMPH% 32.5 % (20.5-51.1); MCH 28.1 PG (27-31); MCV 87.8 FL (81-99); MONO# 0.65 X1000 (0.11-0.59); MONO% 9.1 % (1.7-9.3); MPV 11.1 FL (7.4-10.4); NEUT# 4.04 X1000 (1.4-6.5); NEUT% 56.4 % (42.2-75.2); PLT 200 X1000 (130-400); RBC 5.24 XMIL (4.7-6.1); RDW 13.5 % (11.5-14.5); WBC 7.16 X1000 (4.8-10.8)
[2019-02-28] MEDS: SYNTHROID PO SCH (06:08)
[2019-02-28 06:33] LABS: AGAP 13; BUN 21 mg/dL (8-22); CALCIUM 8.8 mg/dL (8.8-10.2); CHLORIDE 106 mmol/L (98-107); COSMO 286; ESTIMATED GFR > 60; GLUCOSE 98 mg/dL (70-104); MAGNESIUM 1.6 mg/dL (1.5-2.7); POTASSIUM 4.2 mmol/L (3.5-5.1); SODIUM 142 mmol/L (136-145); TCO2 23 mmol/L (25-35)
--- NOTE | 2019-02-28 09:17 | Transesophageal Echocardiogram ---
ORDER DATE: 02/27/2019 PROCEDURE: Transesophageal Echocardiogram. DESCRIPTION OF PROCEDURE: The patient was brought to the cardiac catheterization laboratory for atrial fibrillation. Transesophageal echocardiogram was done prior to cardioversion. The patient's oropharynx was anesthetized using Cetacaine spray. Propofol was given to anesthetize the patient. Please see detailed anesthesia records. Transesophageal probe was easily passed through the esophagus, and ultrasound pictures were obtained. FINDINGS: 1. Normal left ventricular cavity size. Estimated ejection fraction 50% to 55%. However, the patient was in tachycardia. Could not assess left ventricular systolic function accurately. 2. Aortic valve leaflets were trileaflet, mildly sclerosed. 3. Mitral valve was normal. 4. Tricuspid valve was normal. 5. Pulmonic valve was normal. 6. Left atrium was mildly enlarged. 7. Left atrial appendage was normal. 8. Right atrium was normal. 9. Pacing leads are noted in the right chamber. 10. Doppler studies revealed no aortic stenosis or regurgitation. There is mild mitral regurgitation. There is mild tricuspid regurgitation. 11. Ascending aorta was normal. Descending aorta had layered plaque. CONCLUSIONS: 1. No obvious intracardiac mass or thrombus seen. Will proceed with cardioversion. 2. There is no pericardial effusion. 3. Aortic valve leaflets are trileaflet. There is no aortic stenosis or regurgitation. cc: MD Carlos Cyr MD Jagan Reddy, MD
--- NOTE | 2019-02-28 09:18 | OPERATIVE NOTE ---
DATE OF PROCEDURE: 02/27/2019 PROCEDURE: Cardioversion. Patient underwent transesophageal echocardiogram. There was no obvious intracardiac mass or thrombus seen. The patient was anesthetized. Informed consent was obtained prior to the transesophageal echocardiogram. Please see detailed anesthesia records. The patient was cardioverted to sinus rhythm with a single shock of 120 joules. There were no complications. cc: MD Lauro Cyr MD
[2019-02-28] MEDS: NS 1,000 ML IV SCH ×2 (09:34→21:55)
[2019-02-28] MEDS: LOVENOX SUBQ SCH ×2 (09:35→20:30)
[2019-02-28 09:57] LABS: INR 1.14; PROTIME 14.8 Seconds (11.0-16.0)
[2019-02-28] MEDS ORDERED: TOPROL XL PO ONE (11:51)
[2019-02-28] MEDS ORDERED: TAPAZOLE PO ONE (11:52)
--- NOTE | 2019-02-28 14:20 | EKG Report ---
Test Performed on : 02/28/2019 2:16:59 PM Test Reason : Check Rhythm Blood Pressure : / mmHG Vent. Rate : 120 BPM Atrial Rate : 129 BPM P-R Int : 000 ms QRS Dur : 146 ms QT Int : 298 ms P-R-T Axes : 000 125 029 degrees QTc Int : 421 ms Atrial fibrillation. with rapid ventricular response. Right bundle branch block Left posterior fascicular block Bifascicular block Possible Inferior infarct (cited on or before 27-FEB-2019) Abnormal ECG When compared with ECG of 27-FEB-2019 17:51, (Unconfirmed) Previous ECG has undetermined rhythm, needs review Unconfirmed Result
[2019-02-28] MEDS ORDERED: MAGNESIUM SULFATE 2 GM/S.W.I. 2 GM/50 ML IVPB IV ONE (16:34)
[2019-02-28] MEDS: TAPAZOLE PO SCH (20:30)
[2019-02-28] MEDS: TOPROL XL PO SCH (20:30)
--- NOTE | 2019-02-28 21:49 | PROGRESS NOTE ---
DATE: 02/28/2019 SUBJECTIVE: The patient had a cardioversion with 200 joules yesterday. Recurred atrial fibrillation last night. The patient's family is worried about his atrial fibrillation. Blood pressure is running on the low side. The patient has been on amiodarone drip. TSH is low, free T4 is very high. I spoke to Dr. Stringer. We are also waiting for results from [facility]. He had a CT with contrast less than 4 weeks ago. At this time, his recurrent atrial fibrillation is due to hyperthyroidism, that might be causing the diarrhea, and this could be from amiodarone. PHYSICAL EXAMINATION: vital signs: Temperature is 98, pulse 87, blood pressure is 101/71. HEENT: Within normal limits. Neck: Supple. No lymphadenopathy. Chest: Bilateral air entry. Irregular heart sounds. Belly is soft, nontender. No obvious deficits. INVESTIGATIONS: CBC: White cell count 7.1, hematocrit 46, platelets 200,000. PT 14, INR 1.1. Sodium 142, potassium 4.2, BUN 21, creatinine 1.0. Magnesium is normal. Free T4 is very high. ASSESSMENT AND PLAN: 1. 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 He did not have classical Graves disease. I will check the thyroid stimulating immunoglobulin. He is not a candidate for having a 24- hour urine, I-123 uptake. I spoke to Dr. Carlos Stringer. We will follow up on free T3 levels and discontinue the amiodarone. We will start on methimazole 5 mg b.i.d., Toprol 25 p.o. b.i.d., and Lovenox 90 mg subcu q.12. He was on Xarelto. He had a positive troponin, and whether he needs left heart catheterization or stress test up to deputy sheriff k9 handler. I am going to request the reports from [facility] 2. Diarrhea is better. Dehydration is better. 3. Hyperkalemia is improving. We will follow up. LEVEL OF DOCUMENTATION: 25 minutes. cc: Lauro Mckinney MD MTDD
--- NOTE | 2019-02-28 22:04 | CARDIOLOGY PROGRESS NOTE ---
DATE: 02/28/2019 SUBJECTIVE: Mr. Menezes has no complaints today. He went back into atrial fibrillation yesterday evening. OBJECTIVE: Vital signs: He is afebrile, heart rate 87. His blood pressure is 101/71. General: He is in no acute distress. Cardiovascular: He sounds to be in an irregularly irregular rhythm. He is slightly tachycardic during my evaluation with rates ranging anywhere from the 80s up to the low 100s. He has no lower extremity edema. Chest: Exam is clear bilaterally. He has no increased work of breathing. Abdomen: Soft, nontender. PERTINENT DATA: His sodium is 142, potassium 4.2, BUN 21, creatinine is 1. Mag level is 1.6. His hematocrit is 46. ASSESSMENT: Mr. Menezes is a 74-year-old gentleman who presented with atrial fibrillation. Since that time, he has been found to be hyperthyroid with a TSH of 0.01 and a free T4 greater than 7.7. PLAN: Patient has been initiated on methimazole. His metoprolol was titrated up to 25 b.i.d. We stopped the amiodarone. I will replete his magnesium. We will try to obtain better control of his thyroid and hopefully that will allow better control of his atrial fibrillation. cc: MD Lauro Montoya MD
[2019-03-01 06:11] LABS: BASO# 0.02 X1000 (0.0-0.2); BASO% 0.3 % (0.0-0.8); EOS# 0.17 X1000 (0.0-0.7); EOS% 2.4 % (0.0-10.0); HEMATOCRIT 44.2 % (42.0-52.0); IMM GRAN# 0.02 X1000 (0.0-0.04); IMM GRAN% 0.3 % (0.0-0.5); LYMPH# 1.96 X1000 (1.2-3.4); LYMPH% 27.3 % (20.5-51.1); MCH 27.9 PG (27-31); MCHC 31.7 g/dL (33-37); MCV 88.2 FL (81-99); MONO# 0.71 X1000 (0.11-0.59); MONO% 9.9 % (1.7-9.3); MPV 11.3 FL (7.4-10.4); NEUT# 4.31 X1000 (1.4-6.5); NEUT% 59.8 % (42.2-75.2); PLT 185 X1000 (130-400); RBC 5.01 XMIL (4.7-6.1); RDW 13.5 % (11.5-14.5); WBC 7.19 X1000 (4.8-10.8)
[2019-03-01 06:44] LABS: AGAP 13; BUN 18 mg/dL (8-22); CALCIUM 8.9 mg/dL (8.8-10.2); CHLORIDE 107 mmol/L (98-107); COSMO 282; CREATININE 0.9 mg/dL (0.7-1.2); ESTIMATED GFR > 60; GLUCOSE 85 mg/dL (70-104); MAGNESIUM 1.8 mg/dL (1.5-2.7); POTASSIUM 4.6 mmol/L (3.5-5.1); SODIUM 141 mmol/L (136-145); TCO2 21 mmol/L (25-35)
[2019-03-01] MEDS: TOPROL XL PO SCH ×2 (08:11→20:59)
[2019-03-01] MEDS: LOVENOX SUBQ SCH ×2 (08:12→20:59)
[2019-03-01] MEDS: TAPAZOLE PO SCH ×2 (08:12→20:59)
[2019-03-01] MEDS ORDERED: MAGNESIUM SULFATE 2 GM/S.W.I. 2 GM/50 ML IVPB IV ONE (09:18)
[2019-03-01] MEDS: NS 1,000 ML IV SCH (10:11)
--- NOTE | 2019-03-01 19:18 | CARDIOLOGY PROGRESS NOTE ---
DATE: 03/01/2019 SUBJECTIVE: Mr. Menezes reports he is doing well. He has no pain complaints. PHYSICAL EXAMINATION: He is afebrile. His heart rate currently is 106. His trend since 3:00 yesterday, appears improved, being in the 80s to low 100s. Blood pressure 101/83. General: He is in no acute distress. Cardiovascular: He is in an irregularly irregular rhythm consistent with his atrial fibrillation. He has no lower extremity edema. Chest: Clear bilaterally. He has no increased work of breathing. Abdomen: Soft, nontender. PERTINENT DATA: His white count is 7.2, hematocrit is 44, platelet count is 185,000. Sodium 141, potassium 4.6, BUN 18, creatinine 0.9. Magnesium level is 1.8. ASSESSMENT: Mr. Menezes is a 74-year-old gentleman who came in with rapid atrial fibrillation, was found to be significantly hyperthyroid. PLAN: At this point, acute treatment of his atrial fibrillation from the standpoint of rhythm control is on hold until his hyperthyroidism is treated. He is on Lovenox presently. Methimazole was started yesterday. He has p.r.n. Lopressor and oral metoprolol ordered. We discontinued his amiodarone. I have repleted his magnesium. I will stop his IV fluids as his renal dysfunction has been relatively well treated since admission. His free T4 yesterday was greater than 7.7, with 0.01 TSH. His free T3 was 10.3, with upper limit of normal at 4.4. We will likely discuss with Electrophysiology Service today regarding chronic therapy of his atrial fibrillation. Likely would await treatment of his hyperthyroidism and see if we can achieve reasonable rate control. He has a pacemaker in place. so consideration for AV node ablation could be done in the future. cc: MD Lauro Montoya MD
--- NOTE | 2019-03-01 22:33 | PROGRESS NOTE ---
DATE: 03/01/2019 SUBJECTIVE: A 74-year-old white male. Interval history was reviewed. The patient has amiodarone toxicity, hyperthyroid, atrial fibrillation. Findings are discussed. 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 I spoke to the family at bedside. He is rate controlled. Diarrhea has improved. PHYSICAL EXAM: Vital signs: Temperature is 98 degrees, pulse is 99, blood pressure is stable, 2 L nasal cannula. HEENT: Within normal limits. Neck: Supple. No lymphadenopathy. Chest: Bilateral air entry. Heart: Irregular heart sounds. Abdomen: Belly is soft, nontender. ASSESSMENT AND PLAN: 1. Hyperthyroidism. Follow up on TSI. 2. Continue beta blockers, methimazole. 3. Rate control and anticoagulation slowly. Currently on Lovenox. 4. Positive troponin. We will discuss with Dr. Stringer about stress test which is on hold. 5. Diarrhea improved. 6. Acute kidney, injury. At this time will continue present treatment. 7. Diverticulitis, better. LEVEL OF DOCUMENTATION: 35 minutes. cc: Lauro Mckinney MD
[2019-03-02] MEDS: TAPAZOLE PO SCH ×2 (08:28→20:11)
[2019-03-02] MEDS: TOPROL XL PO SCH ×2 (08:29→20:11)
[2019-03-02] MEDS ORDERED: LANOXIN PO ONE (15:03)
--- NOTE | 2019-03-02 15:28 | CARDIOLOGY PROGRESS NOTE ---
DATE: 03/02/2019 SUBJECTIVE: Mr. Menezes reports no complaints overnight. He has no pain complaints. No palpitations. PHYSICAL EXAMINATION: Vital Signs: He is afebrile. His heart rate continues to be borderline elevated in the 90s to 110s. His blood pressure is 105/86. General: He is in no acute distress. Cardiovascular: He sounds to be in an irregularly irregular rate and rhythm. He has no obvious murmurs. He has no S3. He has no lower extremity edema. Chest: Sounds clear bilaterally. He has no increased work of breathing. Abdomen: Soft, nontender. PERTINENT DATA: He has no new laboratory data from today. ASSESSMENT: Mr. Menezes is a 74-year-old gentleman who presents with atrial fibrillation. He was found to be significantly hyperthyroid. PLAN: He is off his amiodarone. I believe most likely his troponin elevation was secondary to renal insufficiency as well as markedly elevated heart rates that occurred during the early portion of the hospitalization. He is off the amiodarone. He is on beta-blockers. He is also on methimazole presently. I will add in some digoxin to try to achieve better rate control. He has been placed back on his Xarelto. At this point, I do not have any acute cardiovascular recommendations. The case has been discussed with the electrophysiology service at [facility] and they recommended obtaining control of his thyroid issues and then potentially as an outpatient, he could have an AV node ablation if there continued to be rate controlled issues considering he already has a pacemaker in place. He has some relative low blood pressures which for limiting some titration of his medications. I will add in a dose of digoxin. cc: MD Lauro Montoya MD
[2019-03-02] MEDS: XARELTO PO SCH (16:17)
--- NOTE | 2019-03-02 19:59 | PROGRESS NOTE ---
DATE: 03/02/2019 SUBJECTIVE: The patient is still in atrial fibrillation. Rate is not well controlled. No chest pain. REVIEW OF SYSTEMS: The rest of the review of systems unremarkable. No diarrhea. OBJECTIVE: On examination, temperature is 97 degrees, tachycardic. Vital signs are stable. HEENT exam within normal limits. Neck is supple. No lymphadenopathy. No goiter. Chest is clear. Heart sounds are regular. Belly is soft, nontender. No neurological deficits. ASSESSMENT AND PLAN: 1. Recurrent atrial fibrillation due to hyperthyroidism. 2. Status post failed cardioversion with 120 joules. 3. Hyperthyroidism due to most likely Cordarone toxicity, discontinued. 4. Optimize metoprolol 50 p.o. b.i.d. Discontinue Lovenox. Will go back on Xarelto. 5. Positive troponin. Asymptomatic. We will get the reports from Dr. Yoo. 6. Check the labs in the morning. He is going to be monitored over the weekend. 7. Diverticulitis is better. Level of documentation 25 minutes. cc: Lauro Mckinney MD MTDD
[2019-03-03 07:25] LABS: BASO# 0.02 X1000 (0.0-0.2); BASO% 0.3 % (0.0-0.8); EOS# 0.13 X1000 (0.0-0.7); EOS% 1.9 % (0.0-10.0); HEMATOCRIT 47.4 % (42.0-52.0); HEMOGLOBIN 15.1 g/dL (14.0-18.0); IMM GRAN# 0.02 X1000 (0.0-0.04); IMM GRAN% 0.3 % (0.0-0.5); LYMPH# 2.67 X1000 (1.2-3.4); LYMPH% 38.5 % (20.5-51.1); MCHC 31.9 g/dL (33-37); MCV 87.9 FL (81-99); MONO# 0.84 X1000 (0.11-0.59); MONO% 12.1 % (1.7-9.3); MPV 11.5 FL (7.4-10.4); NEUT# 3.25 X1000 (1.4-6.5); NEUT% 46.9 % (42.2-75.2); PLT 172 X1000 (130-400); RBC 5.39 XMIL (4.7-6.1); RDW 13.3 % (11.5-14.5); WBC 6.93 X1000 (4.8-10.8)
[2019-03-03 07:49] LABS: AGAP 12; BUN 14 mg/dL (8-22); CALCIUM 9.9 mg/dL (8.8-10.2); CHLORIDE 104 mmol/L (98-107); COSMO 283; CREATININE 0.9 mg/dL (0.7-1.2); ESTIMATED GFR > 60; GLUCOSE 93 mg/dL (70-104); MAGNESIUM 1.6 mg/dL (1.5-2.7); POTASSIUM 4.1 mmol/L (3.5-5.1); SODIUM 142 mmol/L (136-145); TCO2 26 mmol/L (25-35)
[2019-03-03] MEDS: TOPROL XL PO SCH ×2 (08:14→20:09)
[2019-03-03] MEDS: TAPAZOLE PO SCH ×2 (08:14→20:07)
[2019-03-03] MEDS: LANOXIN PO SCH (08:14)
--- NOTE | 2019-03-03 11:58 | PROGRESS NOTE ---
DATE: 03/03/2019 SUBJECTIVE: Patient is stable. OBJECTIVE: Blood pressure is somewhat marginal with systolics as low as 91 on the current metoprolol dosage, pulse 80s to 114, respirations 17, O2 saturation in room air 95%.CV: Irregularly irregular. Lungs: CTA. Abdomen: Nontender, nondistended. Extremities: No calf tenderness, cords or edema. Neurologic: Nonfocal. Cranial nerves intact. LAB DATA: White count 6.9, hemoglobin 15.1, platelets 172,000. Sodium 142, potassium 4.1, chloride 104, CO2 26, BUN 14, creatinine 0.9, calcium 9.9. Magnesium 1.6. ASSESSMENT: 1. Recurrent atrial fibrillation, now with controlled ventricular response on Lopressor and digoxin, marginal blood pressures, however. Failed cardioversion x1. 2. Hyperthyroidism, possibly related to Cordarone. Now off Cordarone. 3. Positive troponin level with normal CKs. PLAN: Continue care per Dr. Stringer and Cardiology team. He remains on the Lopressor and digoxin and I believe he is tolerating this well at this time. He is also on Tapazole for the hyperthyroidism. He is on Xarelto anticoagulation. Continue present care monitoring his heart rate and blood pressure closely here in the PVC unit. cc: MD Lauro Small MD
[2019-03-03] MEDS: XARELTO PO SCH (15:59)
[2019-03-04] MEDS: TOPROL XL PO SCH ×2 (08:51→23:07)
[2019-03-04] MEDS: LANOXIN PO SCH (08:51)
[2019-03-04] MEDS: TAPAZOLE PO SCH ×2 (08:51→23:07)
--- NOTE | 2019-03-04 10:31 | PROGRESS NOTE ---
DATE: 03/04/2019 SUBJECTIVE: Patient appears stable. He is lying on his side, sleeping well. OBJECTIVE: Afebrile, pulse 102 (one was registered at 68 but currently is in the low 100s), respiratory rate 24, blood pressure 102/80, O2 saturation room air 94%.Cardiovascular: Irregularly irregular. Lungs: CTA. ASSESSMENT: 1. Recurrent atrial fibrillation with fairly well-controlled ventricular response on Lopressor and digoxin. 2. Hyperthyroidism, possibly related to Cordarone. Now off Cordarone. 3. Positive troponin level with normal CKs. PLAN: Continue Lopressor, digoxin, Xarelto, and he is on Tapazole for his hyperthyroidism. Cardiology is following. Continue care. cc: MD Lauro Small MD
[2019-03-04] MEDS: XARELTO PO SCH (17:33)
[2019-03-05] MEDS: TAPAZOLE PO SCH ×2 (10:00→20:27)
[2019-03-05] MEDS: LANOXIN PO SCH (10:00)
[2019-03-05] MEDS: TOPROL XL PO SCH ×2 (10:00→20:27)
--- NOTE | 2019-03-05 11:28 | EKG Report ---
Test Performed on : 03/05/2019 11:18:59 AM Test Reason : afib Blood Pressure : / mmHG Vent. Rate : 097 BPM Atrial Rate : 357 BPM P-R Int : 000 ms QRS Dur : 140 ms QT Int : 320 ms P-R-T Axes : 000 074 -23 degrees QTc Int : 406 ms Atrial flutter. with variable AV block. Right bundle branch block T wave abnormality, consider lateral ischemia Abnormal ECG When compared with ECG of 28-FEB-2019 14:16, Atrial flutter. has replaced Atrial fibrillation. Left posterior fascicular block is no longer present Borderline criteria for Inferior infarct are no longer present Inverted T waves have replaced nonspecific T wave abnormality in Inferior leads Unconfirmed Result
[2019-03-05] MEDS: XARELTO PO SCH (17:53)
--- NOTE | 2019-03-05 22:03 | PROGRESS NOTE ---
DATE: 03/05/2019 SUBJECTIVE: The patient is continuing in atrial flutter, moved out of [facility], slightly better. REVIEW OF SYSTEMS: None reported. I did review the reports from [place] I have not seen any prior reports. He was in persistent atrial fibrillation on Synthroid replacement on Cordarone and Xarelto. PHYSICAL EXAM: Vital Signs: Temperature is 97 degrees, tachycardic, vitals stable. HEENT: Within normal limits. Neck: Supple. Chest: Clear. Heart: Irregular heart sounds. Abdomen: Belly is soft, nontender. Neurologic: No obvious deficit. ASSESSMENT AND PLAN: 1. Persistent atrial fibrillation since January, refusing catheter ablation. 2. Status post pacemaker. 3. Continue on Xarelto. 4. Hyperthyroidism. and currently on methimazole and metoprolol 50 p.o. b.i.d. and Xarelto. We will slowly increase the methimazole 10 mg p.o. b.i.d. We will check the free T4 levels, if it is still high, and discuss the plan of care. LEVEL OF DOCUMENTATION: 35 minutes. cc: Lauro Mckinney MD MTDD
[2019-03-06] MEDS: LANOXIN PO SCH (08:37)
[2019-03-06] MEDS: TOPROL XL PO SCH (08:39)
[2019-03-06] MEDS: TAPAZOLE PO SCH (08:39)
[2019-03-06 11:10] VITALS: BP 108/87
--- NOTE | 2019-03-06 21:41 | DISCHARGE SUMMARY ---
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 SECONDARY DIAGNOSES: 1. Failed cardioversion due to hyperthyroidism. 2. Diverticulosis, recently treated for diverticulitis. 3. Hypertension. 4. Chronic systolic heart failure, right bundle branch block. 5. Bilateral fat containing inguinal hernias. 6. Spondylosis of lumbar spine. 7. 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 8. History of right inguinal hernia repair with mesh by Dr. Rob. CONSULTS: Dr. Stringer. PROCEDURES: Cardioversion with [address] Rodriguez after TATI. BRIEF HISTORY: Please see the H and P that was done 02/26/2019. In brief, he is a 73-year-old white male who was readmitted to the hospital with low blood pressure, diarrhea, tachycardia, hypotension, and dizziness after he was treated for diverticulitis from the previous admission. The patient is well known to Dr. Yoo, in [place]. He has persistent atrial fibrillation under his care with amiodarone and Synthroid replacement therapy. I have not seen any reports from his office. He has been declining for catheter ablation due to persistent atrial fibrillation. HOSPITAL COURSE: 1. Initially had diarrhea, ruled out for Clostridium difficile. He was given previous antibiotics for diverticulitis. He has been scheduled for a colonoscopy down the line by Dr. Colin Dalal. 2. He was dehydrated. IV fluids were given. Follow up hydration renal function test came back normal. 3. Slightly positive troponin. He has not had any chest pain. Dr. Stringer felt this is false elevation from the chronic acute kidney disease. At some point, he needs a stress test. 4. Persistent atrial fibrillation. Interestingly, he had a low TSH, free T4 is more than 7.7. It is primarily due to hyperthyroidism from the amiodarone. This was discovered after the cardioversion. I spoke to Dr. Stringer. We will discontinue the amiodarone. I did order TSH, which is still pending. He cannot have the C-reactive iodine uptake 123 study due to recent iodine contrast with a CT of the abdomen and pelvis. Anyhow, he was given beta blockers along with the methimazole. Repeat free T4 still high. At this time, I would not do any pursue for atrial fibrillation until he was cooling off from the hyperthyroid state. The patient is feeling better at the time of discharge. Rate is well controlled. Heart rate is 95. LABS: CBC: White cell count 6.9, hematocrit 47, platelet 172,000. SMA 7 is normal. Free T4 is 7.73. Free T3c also high. TSH is low. DISCHARGE INSTRUCTIONS: 1. The patient has pneumococcal vaccine-23 02/19/2019. 2. Discontinue amiodarone. 3. Discontinue Synthroid. 4. Coreg 25 p.o. b.i.d., nitroglycerin as needed, Aldactone 25 daily, lisinopril 20 daily, Xarelto 20 daily, methimazole 10 p.o. b.i.d.. 5. Repeat the thyroid function tests in 6 weeks. This could be hyperthyroidism from the amiodarone versus iodine from the CT previous visit. 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 Yoo, probably in 6 weeks. Probably, he needs further management for atrial fibrillation. Also needs a stress test at some point. cc: MD Dr. Myke Deleon
== END 2019-03-06 12:41 | disposition home or self-care (01) | DRG 644 ==
LOC: ED 13:34 → 2N 17:23 → 3N 03-04 21:21
PROVIDERS: ADMIT Internal Medicine; ATTEND Internal Medicine

== ENCOUNTER 2019-03-06 22:14 | Inpatient (IN) ==
[2019-03-06] MEDS ORDERED: NS 1,000 ML IV ONE ×2 (22:52→23:42)
[2019-03-06] MEDS ORDERED: NS 1,000 ML ONE (22:59)
--- NOTE | 2019-03-06 23:17 | PROVIDER DOCUMENTATION ---
HPI-Chest Pain - General Chief Complaint: Chest Pain Stated Complaint: chest pain Time Seen by Provider: 03/06/19 22:31 Source: patient Allergies/Adverse Reactions: Patient Allergies Allergy/AdvReac Type Severity Reaction Status Date / Time No Known Allergies Allergy Verified 02/26/19 14:20 Home Medications: Home Medication List Medication Instructions Recorded Confirmed Last Taken Type Carvedilol [Coreg] 2 tab PO BID 02/11/19 02/26/19 02/26/19 History LISINOpril [Prinivil] 20 mg PO DAILY 02/11/19 02/26/19 02/26/19 History Nitroglycerin Sl [Nitroglycerin] 0.4 mg SUBLINGUAL PRN PRN MDD 0.12 02/11/19 02/26/19 02/26/19 History Rivaroxaban [Xarelto] 1 tab PO DAILY 02/11/19 02/26/19 02/25/19 History Spironolactone 0.5 tab PO DAILY 02/11/19 02/26/19 02/25/19 History Methimazole 10 mg PO BID #60 tab 03/06/19 Unknown Rx - History of Present Illness-CP Nature of Presenting Problem: 74 yr old M, hx of atrial fibrillation, thyroid dysfunction, presenting to the ED with several hour hx of CP. Pt was just d/c from the hospital earlier today after being inpatient for several days for similar complaints. Pt states he started having central chest pain, non-radiating, a combination of sharp and pressure-like sensation, shortly after he was discharged. Chest pain worsened, and he decided to come to the ED. He also reports he is feeling more short of breath with exertion now in the past few days than when he was initially admitted to the hospital last week. Location: reports: central Chest Pain Radiation: reports: no radiation Quality of Pain: reports: pressure, sharp Severity in ED: moderate Onset/Duration: 1-3 hours ago Timing: still present Context/Activities at Onset: reports: none Modifying Factors: improves with: nothing Associated Symptoms: reports: shortness of breath Nitro Today/Relief: no nitro taken today Aspirin Treatment Today: no aspirin today Similar Symptoms Previously?: No Review of Systems - Adult - REVIEW OF SYSTEMS - ADULT Constitutional: reports: no symptoms reported Eyes: reports: no symptoms reported Ears, Nose, Mouth & Throat: reports: no symptoms reported Cardiovascular: reports: see HPI, chest pain Respiratory: reports: shortness of breath Gastrointestinal: reports: no symptoms reported Genitourinary: reports: no symptoms reported Musculoskeletal: reports: no symptoms reported Integumentary: reports: no symptoms reported Neurological: reports: no symptoms reported Psychiatric: reports: no symptoms reported Past History - Adult - PAST MEDICAL HISTORY-ADULT Review of Records: reports: Old Records Reviewed, Nursing Assessment Review Major Childhood Illnesses: reports: denies history Cardiovascular: reports: denies history Respiratory: reports: denies history Gastrointestinal: reports: denies history Obstetrical/Gynecological: reports: denies history Genitourinary: reports: denies history Musculoskeletal: reports: denies history Neurological: reports: denies history Endocrine/Immune: reports: denies history Other Conditions: reports: denies history - FAMILY HISTORY Family History: reviewed, not pertinent - SOCIAL HISTORY Living Situation: family Physical Exam-General - PHYSICAL EXAM-ADULT Initial Vital Signs Reviewed: Yes - CONSTITUTIONAL General Appearance: alert, no apparent distress - EYES Eyes: PERRL/EOMI - HEAD, EARS, NOSE, MOUTH & THROAT HENMT: normocephalic/atraumatic, moist mucous membranes - RESPIRATORY Respiratory: chest non-tender, lungs clear, normal breath sounds, no accessory muscle use. negative: respiratory distress - CARDIOVASCULAR Cardiovascular: tachycardia - GASTROINTESTINAL (ABDOMEN) Abdominal Exam: normal bowel sounds, non tender, soft - SKIN Integumentary: warm/dry - NEUROLOGIC Neurologic: no motor/sensory deficits - PSYCHIATRIC Psych/Mental Status: oriented x 3 - HEART Score HEART Score: History: Slightly Suspicious HEART Score: ECG: Non-Specific Repolarization Disturbance/LBBB/PM HEART Score: Age: > or = 65 Years HEART Score: Risk Factors for Atherosclerotic Disease: 1 or 2 Risk Factors HEART Score: Troponin: < or = Normal Limit Total HEART Score:: 4 Progress - PLAN OF CARE/RESULTS Progress/Plan/Lab Results: Vital Signs - 8 hr 03/06/19 22:42 03/06/19 22:46 03/06/19 23:00 Temperature Pulse Rate 110 H 111 H 129 H Respiratory Rate 25 H 18 28 H Blood Pressure 70/50 66/45 80/59 O2 Sat by Pulse Oximetry 92 L 91 L 89 L 03/06/19 23:15 03/06/19 23:19 03/06/19 23:26 Temperature 97.9 F Pulse Rate 116 H 116 H 96 H Respiratory Rate 20 20 13 Blood Pressure 84/46 66/45 83/62 O2 Sat by Pulse Oximetry 92 L 98 89 L 03/06/19 23:30 03/06/19 23:45 03/07/19 00:00 Temperature Pulse Rate 96 H 106 H 109 H Respiratory Rate 14 19 21 Blood Pressure 76/60 93/66 111/72 O2 Sat by Pulse Oximetry 95 93 L 95 03/07/19 00:30 03/07/19 00:45 03/07/19 01:00 Temperature Pulse Rate 98 H 114 H 107 H Respiratory Rate 14 17 18 Blood Pressure 113/80 105/71 112/87 O2 Sat by Pulse Oximetry 92 L 95 89 L 03/07/19 01:15 03/07/19 01:30 03/07/19 01:31 Temperature Pulse Rate 105 H 118 H 109 H Respiratory Rate 36 H 21 18 Blood Pressure 92/69 103/80 O2 Sat by Pulse Oximetry 95 03/07/19 01:45 03/07/19 01:46 03/07/19 02:00 Temperature Pulse Rate 112 H 117 H 96 H Respiratory Rate 22 18 18 Blood Pressure 92/65 91/55 O2 Sat by Pulse Oximetry 100 96 96 03/07/19 02:09 03/07/19 02:15 03/07/19 02:16 Temperature Pulse Rate 105 H 105 H 112 H Respiratory Rate 20 18 14 Blood Pressure 96/72 89/62 O2 Sat by Pulse Oximetry 96 96 92 L 03/07/19 02:26 Temperature Pulse Rate 103 H Respiratory Rate 22 Blood Pressure 99/77 O2 Sat by Pulse Oximetry 94 L Laboratory Results - last 24 hr 03/06/19 03/06/19 03/06/19 23:00 23:00 23:00 WBC Cancelled RBC Cancelled Hgb Cancelled Hct Cancelled MCV Cancelled MCH Cancelled MCHC Cancelled RDW Std Deviation Cancelled Plt Count Cancelled MPV Cancelled Immature Gran % (Auto) Cancelled Neut % (Auto) Cancelled Lymph % (Auto) Cancelled [place] % (Auto) Cancelled Eos % (Auto) Cancelled Baso % (Auto) Cancelled Immature Gran # (Auto) Cancelled Neut # (Auto) Cancelled Lymph # (Auto) Cancelled [place] # (Auto) Cancelled Eos # (Auto) Cancelled Baso # (Auto) Cancelled Corrected WBC (Man) Cancelled PT INR PTT (Actin FS) D-Dimer, Quantitative Sodium 141 Potassium 5.3 H Chloride 99 Carbon Dioxide 21 L Anion Gap 21 BUN 40 H Creatinine 2.1 H Estimated GFR/1.73 m2 31 BUN/Creatinine Ratio 19 Glucose 147 H Calculated Osmolality 294 Calcium 10.2 Total Bilirubin 0.39 AST 20 ALT 32 Alkaline Phosphatase 97 Creatine Kinase 30 Troponin T 0.039 [id number]-[id number] Pept Total Protein 7.5 Albumin 3.8 Globulin 3.7 Albumin/Globulin Ratio 1.0 03/06/19 03/06/19 03/07/19 23:00 23:00 00:02 WBC 8.90 RBC 6.01 Hgb 16.6 Hct 51.3 MCV 85.4 MCH 27.6 MCHC 32.4 L RDW Std Deviation 13.1 Plt Count 156 MPV 11.3 H Immature Gran % (Auto) 0.6 H Neut % (Auto) 70.1 Lymph % (Auto) 19.6 L [place] % (Auto) 9.2 Eos % (Auto) 0.3 Baso % (Auto) 0.2 Immature Gran # (Auto) 0.05 H Neut # (Auto) 6.24 Lymph # (Auto) 1.74 [place] # (Auto) 0.82 H Eos # (Auto) 0.03 Baso # (Auto) 0.02 Corrected WBC (Man) PT 17.4 H INR 1.39 PTT (Actin FS) 32.5 D-Dimer, Quantitative 0.43 Sodium Potassium Chloride Carbon Dioxide Anion Gap BUN Creatinine Estimated GFR/1.73 m2 BUN/Creatinine Ratio Glucose Calculated Osmolality Calcium Total Bilirubin AST ALT Alkaline Phosphatase Creatine Kinase Troponin T [id number]-Itnpkmuvitx Pept Total Protein Albumin Globulin Albumin/Globulin Ratio 03/07/19 03/07/19 03/07/19 01:40 01:40 01:40 WBC RBC Hgb Hct MCV MCH MCHC RDW Std Deviation Plt Count MPV Immature Gran % (Auto) Neut % (Auto) Lymph % (Auto) [place] % (Auto) Eos % (Auto) Baso % (Auto) Immature Gran # (Auto) Neut # (Auto) Lymph # (Auto) [place] # (Auto) Eos # (Auto) Baso # (Auto) Corrected WBC (Man) PT INR PTT (Actin FS) D-Dimer, Quantitative Sodium Potassium Chloride Carbon Dioxide Anion Gap BUN Creatinine Estimated GFR/1.73 m2 BUN/Creatinine Ratio Glucose Calculated Osmolality Calcium Total Bilirubin AST ALT Alkaline Phosphatase Creatine Kinase 25 Troponin T 0.020 [id number]-Jnfsbyujqrl Pept 1619 H Total Protein Albumin Globulin Albumin/Globulin Ratio Orders Category Date Time Status Nursing- Obtain EKG once Care 03/06/19 22:41 Active CHEST-2 VIEWS [RAD] Stat Exams 03/07/19 01:16 Taken CBC WITH ELECTRONIC DIFF [HEME] Routine Lab 03/07/19 00:02 Completed CK PROFILE [SP CHEM] Stat Lab 03/06/19 23:00 Completed CK PROFILE [SP CHEM] Stat Lab 03/07/19 01:40 Completed CMP [COMPREHENSIVE METABOLIC PANEL] [CHEM] Stat Lab 03/06/19 23:00 Completed D-DIMER [COAG] Stat Lab 03/07/19 01:15 Completed PROTIME WITH INR [COAG] Stat Lab 03/06/19 23:00 Completed PTT [COAG] Stat Lab 03/06/19 23:00 Completed TROPONIN T Stat Lab 03/06/19 23:00 Completed TROPONIN T Stat Lab 03/07/19 01:40 Completed pro-bnp [PRO B-NATRIURETIC PEPTIDE] Stat Lab 03/07/19 01:40 Completed 0.9% Sodium Chloride Inj [Ns] 1,000 ml Med 03/06/19 22:59 Discontinued .ROUTE As directed 0.9% Sodium Chloride Inj [Ns] 1,000 ml Med 03/06/19 22:52 Discontinued IV 999 mls/hr 0.9% Sodium Chloride Inj [Ns] 1,000 ml Med 03/06/19 23:42 Discontinued IV 999 mls/hr Diltiazem [Cardizem] Med 03/07/19 01:47 Discontinued 10 mg IV NOW ONE Sodium Polystyrene [Kayexalate] Med 03/07/19 01:11 Discontinued 30 gm PO NOW ONE EKG [EKG] Stat Ther 03/06/19 22:41 Draft EKG [EKG] Stat Ther 03/07/19 01:04 Ordered EKG [EKG] Stat Ther 03/07/19 01:48 Draft BP initially in the 70s SBP - has only started to stabilize in the 90s SBP after 2L NS IV with pressure bag. Pt is alert, oriented; states chest pain is about the same, no change, pending D-dimer, BNP to make further decisions on management. Pt signed out to Dr. Link. Pt made aware of findings to date. Pt signed out to me by Dr. Roman, pt was hypotensive and still having CP since this discharge this am, pt responded to IVF, pt to be admitted, accepted by Dr. Rojas Result Diagrams: 03/07/19 00:02 03/06/19 23:00 - EKG 1 Time of EKG reading by physician:: 22:33 EKG Read and Signed by:: Brad Link EKG Interpretation (*Must complete 3 of following elements*): Abnormal Rate: 122 Rhythm: atrial flutter with AV block QRS: RBB ST Wave: non-specific ST changes - XRAY 1 XRAY Study: Chest XRAY Interpretation: viewed by Dr. Roman, no acute processes identified, official read pending - CHANGE OF SHIFT REPORT (ED Provider) 1 Report Given and Care Transferred to:: Dr. Link Time of Transfer: 02:00 Items Pending: Labs Departure - Departure Date of Disposition Decision: 03/07/19 Time of Disposition Decision: 03:06 DIAGNOSIS: Unstable angina Hypotension Qualifiers: Hypotension type: unspecified hypotension type Qualified Code(s): I95.9 - Hypotension, unspecified Disposition: ADMITTED INPATIENT 09 Certified Medical Emergency: Emergent Condition: Fair Referrals and Follow-Ups: Isabella Mckinney MD [Primary Care Provider] - - Critical Care Note This patient required my direct & personal management of CC.: No Attestation - Physician/ JORDI Attestation Patient care was provided by Advanced Practice Provider:: No The physician spent face to face time with patient:: Yes Advanced Practice Provider documentation review:: Supervising physician onsite and consulted in the evaluation and care of this patient. The physician did have a face to face encounter with the patient.
[2019-03-06 23:28] LABS: INR 1.39; PROTIME 17.4 Seconds (11.0-16.0); PTT 32.5 Seconds (22.3-41.8)
[2019-03-06 23:48] LABS: ALBUMIN 3.8 g/dL (3.5-5.0); CALCIUM 10.2 mg/dL (8.8-10.2); CREATININE 2.1 mg/dL (0.7-1.2); POTASSIUM 5.3 mmol/L (3.5-5.1); TOTAL BILIRUBIN 0.39 mg/dL (0.20-1.00); TOTAL PROTEIN 7.5 g/dL (6.3-8.3)
[2019-03-07 00:08] LABS: BASO# 0.02 X1000 (0.0-0.2); BASO% 0.2 % (0.0-0.8); EOS# 0.03 X1000 (0.0-0.7); EOS% 0.3 % (0.0-10.0); HEMATOCRIT 51.3 % (42.0-52.0); HEMOGLOBIN 16.6 g/dL (14.0-18.0); IMM GRAN# 0.05 X1000 (0.0-0.04); IMM GRAN% 0.6 % (0.0-0.5); LYMPH# 1.74 X1000 (1.2-3.4); LYMPH% 19.6 % (20.5-51.1); MCH 27.6 PG (27-31); MCHC 32.4 g/dL (33-37); MCV 85.4 FL (81-99); MONO# 0.82 X1000 (0.11-0.59); MONO% 9.2 % (1.7-9.3); MPV 11.3 FL (7.4-10.4); NEUT# 6.24 X1000 (1.4-6.5); NEUT% 70.1 % (42.2-75.2); PLT 156 X1000 (130-400); RBC 6.01 XMIL (4.7-6.1); RDW 13.1 % (11.5-14.5)
--- NOTE | 2019-03-07 00:35 | EKG Report ---
Test Performed on : 03/06/2019 10:33:03 PM Test Reason : CHEST PAIN Blood Pressure : / mmHG Vent. Rate : 122 BPM Atrial Rate : 337 BPM P-R Int : 000 ms QRS Dur : 144 ms QT Int : 390 ms P-R-T Axes : 000 086 -28 degrees QTc Int : 555 ms Atrial flutter. with variable AV block. Right bundle branch block T wave abnormality, consider inferior ischemia Abnormal ECG When compared with ECG of 05-MAR-2019 11:18, No significant change was found Unconfirmed Result
[2019-03-07] MEDS ORDERED: KAYEXALATE PO ONE (01:11)
[2019-03-07] MEDS ORDERED: CARDIZEM IV ONE (01:47)
--- NOTE | 2019-03-07 02:25 | EKG Report ---
Test Performed on : 03/07/2019 02:26:00 AM Test Reason : Chest Pain Blood Pressure : / mmHG Vent. Rate : 107 BPM Atrial Rate : 107 BPM P-R Int : 000 ms QRS Dur : 138 ms QT Int : 352 ms P-R-T Axes : 000 072 -11 degrees QTc Int : 469 ms Atrial fibrillation. with rapid ventricular response. Right bundle branch block Abnormal ECG When compared with ECG of 06-MAR-2019 22:33, (Unconfirmed) Atrial fibrillation. has replaced Atrial flutter. Unconfirmed Result
[2019-03-07] MEDS ORDERED: NS 1,000 ML IV ONE ×2 (03:07→05:30)
[2019-03-07] MEDS ORDERED: VANCOMYCIN 1 GM/NS 1 GM/250 ML IVPB IV ONE (03:07)
[2019-03-07] MEDS ORDERED: ZOSYN 3.375 GM in NS 50 ML IV ONE (03:07)
--- NOTE | 2019-03-07 04:25 | EKG Report ---
Test Performed on : 03/07/2019 03:37:53 AM Test Reason : CHEST PAIN Blood Pressure : / mmHG Vent. Rate : 131 BPM Atrial Rate : 115 BPM P-R Int : 000 ms QRS Dur : 140 ms QT Int : 348 ms P-R-T Axes : 000 092 -07 degrees QTc Int : 513 ms Atrial fibrillation. with rapid ventricular response. Right bundle branch block Abnormal ECG When compared with ECG of 07-MAR-2019 02:26, (Unconfirmed) No significant change was found Unconfirmed Result
--- NOTE | 2019-03-07 04:37 | Diag Imaging Result Doc PS360 ---
EXAM: CHEST-2 VIEWS HISTORY: short of breath TECHNIQUE: Two views COMPARISON: 02/26/2019 FINDINGS: The lungs are well expanded. The heart is not enlarged. Left pacemaker. The vessels are not distended. There are no infiltrates. No pleural effusions. IMPRESSION: No acute abnormality. Electronically signed by Aaron Mendez 03/07/2019 4:35 AM
[2019-03-07] MEDS ORDERED: NS 1,000 ML ONE (05:37)
[2019-03-07] MEDS ORDERED: LEVOPHED 8 MG in D5 1/2 NS 250 ML IV SCH ×2 (05:45→12:00)
[2019-03-07] MEDS ORDERED: NS 1,000 ML IV SCH (06:13)
[2019-03-07] MEDS: NS 1,000 ML IV SCH ×3 (08:00→23:00)
--- NOTE | 2019-03-07 08:30 | HISTORY AND PHYSICAL ---
PRIMARY CARE PHYSICIAN: Dr. Mckinney. CHIEF COMPLAINT: Chest pain. HISTORY OF PRESENTING ILLNESS: A 74-year-old male with a history of hyperthyroidism, hypertension, paroxysmal atrial fibrillation, who had presented to the emergency department with a 1-day history of having substernal chest pain. Patient states that was more pressure-like and he was short of breath and was persistent. He was evaluated in the emergency department. He was noted to be hypotensive with a systolic blood pressure on 70s. Due to his presenting symptoms, he will require admission for further management. At the time of my examination, patient denied any headache, fever, chills, nausea, vomiting, diarrhea, hemoptysis, or any weight changes but complained of chest discomfort and shortness of breath. PAST MEDICAL HISTORY: Includes hyperthyroidism, hypertension, paroxysmal atrial fibrillation, diverticulitis. PAST SURGICAL HISTORY: Hernia repair, pacemaker. ALLERGIES: No known drug allergies. CURRENT MEDICATIONS: Include Carvedilol 12.5 mg 2 tablets p.o. b.i.d., lisinopril 20 mg p.o. daily, methimazole 10 mg p.o. b.i.d., nitroglycerin 0.4 mg sublingual p.r.n., Xarelto 20 mg p.o. daily, spironolactone 25 mg half tablet p.o. daily. SOCIAL HISTORY: No history of smoking, alcohol or illicit drug use. FAMILY HISTORY: No history of coronary disease. REVIEW OF SYSTEMS: Fourteen point review of systems is as in HPI. Other systems negative. PHYSICAL EXAMINATION: GENERAL: Cooperative, friendly male. He is resting more comfortably now. VITAL SIGNS: Pulse 110, respirations 25, blood pressure is 70/50. HEENT: Atraumatic, normocephalic. Extraocular movements intact. PERRLA. NECK: No masses. CHEST: Clear to auscultation. CARDIOVASCULAR: Regular rate and rhythm. ABDOMEN: Soft, positive bowel sounds. EXTREMITIES: No edema. NEUROLOGIC: He is awake, alert, oriented x3. : No bladder distention. SKIN: Warm. LABORATORIES AND STUDIES: WBC 8.90, hemoglobin 16.6, hematocrit 51.3, platelets 156,000. Sodium 141, potassium 5.3, chloride 99, CO2 is 21, BUN is 40, creatinine is 2.1, glucose 147. Troponin is 0.02. Chest x-ray: No acute abnormalities. ASSESSMENT: A 74-year-old male with a history of paroxysmal atrial fibrillation, hyperthyroidism and hypertension who had presented to the emergency department with a 1-day history of having substernal chest pain. He was evaluated in the emergency department. He was also found to be hypotensive due to his presenting symptoms. He will require admission for further management. 1. Suspected unstable angina. 2. Hypotension. 3. Paroxysmal atrial fibrillation. 4. Acute kidney injury. PLAN: 1. We will admit patient to [facility]. 2. We will continue with cardiac workup, EKG serial cardiac enzymes. Have patient continue on aspirin. We will use sublingual nitroglycerin and morphine p.r.n. chest pain. 3. We will consult Cardiology. 4. Continue with IV fluids, and may need to use pressors if he remains hypotensive. 5. We will continue to monitor patient on telemetry. 6. Monitor his renal function. 7. The patient is already on Xarelto and this will suffice for DVT prophylaxis. 8. We will continue to follow and reassess. Make further recommendation based on patient's clinical course. cc: MD Lauro Butler MD
--- NOTE | 2019-03-07 10:27 | EKG Report ---
Test Performed on : 03/07/2019 07:43:49 AM Test Reason : CP Blood Pressure : / mmHG Vent. Rate : 123 BPM Atrial Rate : 147 BPM P-R Int : 000 ms QRS Dur : 148 ms QT Int : 360 ms P-R-T Axes : 000 084 005 degrees QTc Int : 515 ms Atrial fibrillation. with rapid ventricular response. Right bundle branch block Abnormal ECG When compared with ECG of 07-MAR-2019 03:37, (Unconfirmed) No significant change was found Unconfirmed Result
[2019-03-07] MEDS: MORPHINE IV PRN ×2 (11:46→16:52)
[2019-03-07] MEDS: ASPIRIN PO SCH (11:46)
[2019-03-07] MEDS ORDERED: MORPHINE ONE (11:51)
[2019-03-07] MEDS ORDERED: BLISTEX MEDICATED BERRY LIP BALM TOP PRN (12:38)
[2019-03-07] MEDS: TAPAZOLE PO SCH ×2 (15:24→20:44)
[2019-03-07 16:34] LABS: FREE T4 7.17 ng/dL (0.93-1.70); TSH 0.01 uIUmL (0.27-4.20)
[2019-03-07] MEDS ORDERED: CORTROSYN IV ONE (16:43)
[2019-03-07] MEDS ORDERED: LOPRESSOR IV PRN (16:46)
[2019-03-08] MEDS: NS 1,000 ML IV SCH ×3 (01:16→14:43)
[2019-03-08] MEDS: MORPHINE IV PRN ×3 (02:35→20:39)
--- NOTE | 2019-03-08 06:41 | CONSULTATION ---
DATE OF CONSULTATION: 03/07/2019 IMPRESSION: 1. Atrial fibrillation with rapid ventricular rate and associated angina. Patient's chest discomfort has improved with control of his heart rate. 2. Hyperthyroidism which developed while on treatment with amiodarone to suppress paroxysmal atrial fibrillation. Consider the possibility of amiodarone induced hyperthyroidism/thyroiditis. 3. Hypertension. 4. Status post previous permanent pacemaker. RECOMMENDATIONS: 1. Control heart rate with beta lionel. 2. Continue anticoagulation. 3. Support blood pressure as needed with Ishaan-Synephrine. 4. Consider addition of corticosteroids. 5. Continue to try and suppress hyperthyroidism. 6. Ultimately, patient may benefit from AV node ablation particularly if patient continues to have problems with atrial fibrillation and rapid ventricular rate despite therapy and improvement in thyroid function. HISTORY: This 74-year-old white male with past history of paroxysmal atrial fibrillation, previous permanent pacemaker in the past, and hypertension was admitted with chest heaviness and some shortness of breath in the setting of atrial fibrillation with rapid ventricular rate. He was just recently hospitalized here for atrial fibrillation. He was found to have hyperthyroidism, and has only been on amiodarone for several months at this point. He previously had some degree of hypothyroidism. He was treated with beta-lionel for rate control and thyroid suppressing agents. There was some consideration of possible AV node ablation to control his heart rate given that it may be several weeks before his hyperthyroidism comes under better control. He was just discharged yesterday. He relates that today he started having substernal heaviness with some shortness of breath, and came to the emergency room. He was found to be in atrial fibrillation with rapid ventricular rate. Blood pressure was low. He was started on intravenous pressor agents and given intravenous fluids. His tachycardia improved. He still has mildly elevated heart rate. His chest symptoms have resolved. He has been on oral anticoagulation with Xarelto for thromboembolic risk protection. PAST MEDICAL HISTORY: 1. Hypertension. 2. Paroxysmal atrial fibrillation. 3. Status post permanent pacemaker in the past. 4. Hypothyroidism in the past. PAST SURGICAL HISTORY: Hernia repair. ALLERGIES: No known drug allergies. MEDICATIONS PRIOR TO ADMISSION: As listed. SOCIAL HISTORY: He is and is retired. He does not smoke nor use alcohol. FAMILY HISTORY: Negative for premature coronary disease. REVIEW OF SYSTEMS: Pulmonary: Negative. Gastrointestinal: Negative. Constitutional: Negative. Remainder of the review of systems negative/noncontributory with 14 total systems reviewed. PHYSICAL EXAMINATION: General: This is a pleasant older white male in no distress on room air. Vital Signs: Blood pressure 101/79, heart rate 110, and oxygen saturation 97%. HEENT: Extraocular movements intact. Mucous membranes are moist. Neck: Supple without jugular venous distention. There are no carotid bruits. Chest: Clear to auscultation. Cardiac: Exam reveals an irregular rate and rhythm without appreciable murmur or gallop. Abdomen: Soft. Bowel sounds are normal. Extremities: Without edema. Neurologic: Reveals him to be alert and fully oriented. Speech is fluent. Moves all 4 extremities equally well. Deep tendon reflexes are hyperreflexic. LABORATORY DATA: White blood cell count 8.9, hematocrit 51.3, hemoglobin 16.6, and platelet count 156,000. Troponin T 0.039 with followup troponin T of 0.015. Initial CPK 30. Followup CPK 25. Sodium 141, potassium 5.3, chloride 99, carbon dioxide 21, BUN 40, and creatinine 2.1. Glucose 147. Recent free T4 greater than 7.77 (upper limit normal). A 12 lead EKG obtained this morning demonstrates atrial fibrillation with rapid ventricular rate and right bundle branch block. cc: MD Lauro Lisa MD
--- NOTE | 2019-03-08 07:30 | PROGRESS NOTE ---
DATE: 03/07/2019 SUBJECTIVE: The patient just discharged from the hospital on 07/04/2018 and he returned to the ER with atrial fibrillation, low blood pressure, chest pain. Interval history was reviewed. Patient was in the emergency room. He was given crystalloids and also vasopressors for hypotension. He was given morphine. He was readmitted with atrial fibrillation due to hyperthyroidism. Dr. Stringer texted me. [facility] with EP hospital chief financial officer template storage clerk. The patient has hyperthyroidism, possibly from amiodarone or iodine which was given for CT from the previous admission when he had diverticulitis. The patient was seen twice, once in the emergency room and again last night. He also got admitted in ICU 5 and he looks stable. He is off vasopressors. No chest pain. PAST MEDICAL HISTORY: Reviewed. PAST SURGICAL HISTORY: Reviewed. MEDICINES: Reviewed. ALLERGIES: Not known. EXAMINATION: He is tachycardic. Vitals are stable. HEENT Examination: Within normal limits. Chest is clear. Irregular heart sounds. Belly is soft, nontender. No obvious deficits. INVESTIGATIONS: White cell count 8.9, hematocrit 51, platelets 156,000. Sedimentation rate is 13, INR is 1.39. BUN 40, creatinine 2.1. Cardiac enzymes were negative. ProBNP 1600. Free T4 is 7.1. Cortisol levels are normal. EKG was atrial fibrillation. Chest x-ray, cardiomegaly with a pacemaker on the left side. ASSESSMENT: 1. Atrial fibrillation due to hyperthyroidism. 2. Hypotension. 3. Acute kidney injury. 4. Chest pain. PLAN OF CARE: He does not look septic. Continue on Xarelto. Started on methimazole and metoprolol as needed. IV fluids and vasopressors as needed for hemodynamic support. Repeat the labs in the morning, CBC, SMA 7, as well as troponin. I spoke to his primary hospital chief financial officer, Dr. Navarro, explained his hospitalization at [facility]. Patient is willing to be transferred in the morning at [facility]. He is already accepted, waiting for a bed. I will communicate with the nursing staff as well as the patient to be transferred to [place] at [facility]. We will continue present treatment. Discussed with the family again this evening at 8 o'clock that he will be transferred as soon as the bed is available at [place] in [facility]. LEVEL OF DOCUMENTATION: 35 minutes. cc: Lauro Mckinney MD MTDD
[2019-03-08 08:38] LABS: AGAP 14; BUN 25 mg/dL (8-22); CALCIUM 9.4 mg/dL (8.8-10.2); CHLORIDE 108 mmol/L (98-107); COSMO 289; CREATININE 1.1 mg/dL (0.7-1.2); ESTIMATED GFR > 60; GLUCOSE 64 mg/dL (70-104); POTASSIUM 4.3 mmol/L (3.5-5.1); SODIUM 144 mmol/L (136-145); TCO2 22 mmol/L (25-35)
[2019-03-08 08:56] LABS: BASO# 0.03 X1000 (0.0-0.2); BASO% 0.4 % (0.0-0.8); EOS% 1.3 % (0.0-10.0); HEMATOCRIT 46.9 % (42.0-52.0); HEMOGLOBIN 14.9 g/dL (14.0-18.0); IMM GRAN# 0.03 X1000 (0.0-0.04); IMM GRAN% 0.4 % (0.0-0.5); LYMPH# 2.66 X1000 (1.2-3.4); LYMPH% 33.7 % (20.5-51.1); MCHC 31.8 g/dL (33-37); MONO# 0.74 X1000 (0.11-0.59); MONO% 9.4 % (1.7-9.3); NEUT# 4.34 X1000 (1.4-6.5); NEUT% 54.8 % (42.2-75.2); PLT 122 X1000 (130-400); RBC 5.33 XMIL (4.7-6.1); RDW 13.5 % (11.5-14.5)
[2019-03-08] MEDS: TAPAZOLE PO SCH ×2 (09:05→20:13)
[2019-03-08] MEDS: ASPIRIN PO SCH (09:05)
[2019-03-08] MEDS ORDERED: XARELTO PO SCH (17:00)
[2019-03-08 21:02] VITALS: BP 128/99
--- NOTE | 2019-03-11 08:08 | DISCHARGE SUMMARY ---
ADMISSION DATE: 03/07/2019 DISCHARGE DATE: 03/08/2019 DISCHARGING DIAGNOSES: 1. Chest pain, atypical. 2. 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 3. Hypotension due to volume depression due to hyperthyroidism. 4. Diverticulosis, recently treated for diverticulitis. 5. Chronic systolic heart failure. 6. Abnormal electrocardiogram with right bundle. 7. Bilateral fat-containing inguinal hernia. 8. Lumbar spondylosis. 9. History of permanent pacemaker due to bradycardia in [place]. CONSULTS: Dr. Mukul Finley. BRIEF HISTORY: Please see the H and P that was done by hospitalist. In brief, he is a 73-year- old white male, just discharged the day before, on readmission from the ER, who came in with chest pain, atrial fibrillation, hypotension. The patient was given IV crystalloids and IV vasopressors, admitted to the ICU. Dr. Stringer felt that he needs an EP kylee and user experience architect. He wants to be transferred out to the tertiary hospital. The patient is well known to Dr. Yoo in [place] at [facility]. I spoke to him on the telephone, and abreast all of the interval history, what happened from the previous admissions in [facility]. He did accept the patient, and transferred by ambulance to the [facility] in a stable condition. LABORATORY DATA: Labs at the time of discharge as follows. CBC: White cell count 7.9, hematocrit 46, platelets 122,000. Sodium 144, potassium 4.3, chloride 108, BUN 25, creatinine 1.1, glucose 64. Cardiac enzymes were negative x3. ProBNP 1600. Free T4 of 7.1. Cortisol levels were normal. DISCHARGE INSTRUCTIONS: Hold the blood pressure medicines, which are Coreg and lisinopril. Continue IV fluids, aspirin. The patient was given methimazole 10 mg p.o. b.i.d., metoprolol as needed. The patient was transferred to [facility] by ambulance in a stable condition. cc: MD Dr. Myke Deleon
== END 2019-03-08 20:41 | disposition short-term general hospital (02) | DRG 644 ==
LOC: SUPCPDRO → ED 22:14 → SUATTDRO 03-07 05:40 → 2N 03-07 05:40 → ICU 03-07 10:54
PROVIDERS: ADMIT Internal Medicine; ATTEND Internal Medicine